=== PATIENT | male | born 1995 | race Asian ===

== ENCOUNTER 2020-03-02 11:34 | Outpatient (REF) | payer OTHER, SELFPAY | END 2020-03-02 11:35 | disposition home or self-care (01) | LOC: HO.LAB 11:34 | PROVIDERS: Visit Provider Internal Medicine | DX: Z20.828 Contact with and (suspected) exposure to other viral communicable diseases (principal) | CPT/HCPCS: C9803; U0003 ==

== ENCOUNTER 2021-08-16 09:34 | Outpatient (REF) | payer OTHER, SELFPAY ==
[2021-08-16 10:20] LABS: Hematocrit 50.3 % (42.0-52.0); Mean Corpuscular HGB Conc 33.8 g/dl (31.0-36.0); Mean Corpuscular Volume 85.7 fL (80.0-98.0); Mean Platelet Volume 8.7 fL (9.4-12.4); Platelet Count 327 X10*3/uL (160-400); Red Blood Count 5.87 X10*6/uL (4.60-5.80); Red Cell Distribution Width 11.4 % (11.0-16.0); White Blood Count 5.7 X10*3/uL (4.8-10.8)
[2021-08-16 10:45] LABS: Alanine Aminotransferase 46 U/L (0-40); Albumin Level 4.5 g/dL (3.5-5.0); Alkaline Phosphatase 80 U/L (39-117); Anion Gap 12 (12-20); Aspartate Amino Transferase 33 U/L (5-37); Bilirubin Total 0.9 mg/dL (0.0-1.0); Blood Urea Nitrogen 13 mg/dL (9-16); Calcium 9.7 mg/dL (8.4-10.2); Carbon Dioxide 27 mmol/L (22-29); Chloride 104 mmol/L (96-108); Cholesterol 264 mg/dL; Estimated Glomerular Filt Rate > 60; Glucose Fasting 98 mg/dL (60-99); HDL Cholesterol 36 mg/dL; LDL Cholesterol Calculated 197 mg/dl; Potassium 4.4 mmol/L (3.3-5.1); Sodium 139 mmol/L (135-145); Total Protein 7.8 g/dL (6.5-8.0); Triglycerides 158 mg/dL
[2021-08-16 11:06] LABS: Estimated Average Glucose 108 mg/dL; Hemoglobin A1c % 5.4 %
== END 2021-08-16 09:35 | disposition home or self-care (01) ==
LOC: HO.LAB 09:34
PROVIDERS: PCP Nurse Practitioner Family; Visit Provider Nurse Practitioner Family
DX: E78.00 Pure hypercholesterolemia, unspecified (principal); E78.2 Mixed hyperlipidemia; E11.9 Type 2 diabetes mellitus without complications; Z76.89 Persons encountering health services in other specified circumstances
CPT/HCPCS: 36415; 80053; 80061; 83036; 85027

== ENCOUNTER 2022-07-23 16:06 | Inpatient (IN) | payer OTHER, SELFPAY ==
--- NOTE | ~2022-07-23 | CT_ITS ---
EXAMINATION: CT ABDOMEN AND PELVIS WITHOUT CONTRAST CLINICAL INFORMATION: Severe lower abdominal pain and diarrhea COMPARISON: None available. TECHNIQUE: Multidetector volumetric imaging was performed from the superior aspect of the liver through the pubic symphysis. Sagittal and coronal reformatted images were obtained on the technologist's workstation. This CT examination was performed using dose optimization techniques as appropriate, variously including the following: *Automated exposure control *Adjustment of mA and/or kV according to patient size (this includes techniques or standardized protocols for targeted exams where dose is matched to indication/reason for exam; i.e. extremities or head) *Use of iterative reconstruction technique DLP: 504 mGy-cm FINDINGS: LUNG BASES: The visualized lung bases are unremarkable. LIVER, GALLBLADDER, AND BILIARY TREE: The liver is enlarged at 18.7 cm in greatest cephalocaudad dimension with decreased attenuation consistent with hepatic steatosis. No focal hepatic lesion or biliary ductal dilatation is present. The gallbladder is unremarkable with no evidence of radiopaque gallstones, gallbladder wall thickening, or obvious pericholecystic inflammatory changes. PANCREAS: Unremarkable. SPLEEN: Unremarkable. ADRENAL GLANDS: Unremarkable. KIDNEYS AND URETERS: The kidneys are normal in size, shape, and attenuation. There is mild left-sided hydronephrosis without an obstructing lesion seen. The ureter is not dilated. No right-sided hydronephrosis or hydroureter. No renal calculi. No perinephric stranding. BLADDER: Empty. No bladder calculi. GASTROINTESTINAL TRACT: Stool is only present in the right colon. The small and large bowel are unremarkable. The appendix is unremarkable. ABDOMINAL WALL: No significant hernia is appreciated. LYMPH NODES: Normal. VASCULAR: Unremarkable. PELVIC VISCERA: The prostate and seminal vesicles are unremarkable. There is a tiny cystic flat area seen just anterior to the left seminal vesicle which measures 1.3 x 0.9 cm questionable significance. This could be related to the ureterocele. OSSEOUS STRUCTURES: Unremarkable. CT/CT abdomen pelvis wo IV con IMPRESSION: 1. A cause for the patient's lower abdominal pain and diarrhea has not been found. 2. Incidental note made of an enlarged fatty liver. 3. There is mild left-sided hydronephrosis without an obstructing lesion seen. Small cystic area just in front of the left seminal vesicle of questionable significance. If further evaluation is needed, MRI would be the exam of choice. Fleischner guidelines were followed.
--- NOTE | ~2022-07-23 | CT_ITS ---
EXAMINATION: CT ANGIOGRAM ABDOMEN AND PELVIS CLINICAL INFORMATION: Bloody diarrhea, abdominal pain and concern for ischemia COMPARISON: Noncontrast CT scan pelvis earlier today TECHNIQUE: Multiple axial images were obtained through the abdomen and pelvis following the administration of 80 mL of Omnipaque 350 intravenous contrast. Additional 2-D coronal and sagittal reformatted images and axial 3-D maximum intensity projection MIP images are generated on the CT workstation. This CT examination was performed using dose optimization techniques as appropriate, variously including the following: *Automated exposure control *Adjustment of mA and/or kV according to patient size (this includes techniques or standardized protocols for targeted exams where dose is matched to indication/reason for exam; i.e. extremities or head) *Use of iterative reconstruction technique DLP: 450 mGy-cm VASCULAR FINDINGS: The abdominal aorta and visualized iliofemoral vessels are entirely normal. The celiac, SMA and PAOLA are all widely patent. No evidence of stenoses or emboli. There are single renal arteries present bilaterally which are widely patent. No extravasation of contrast is seen within bowel lumen. No AV malformations are seen. NONVASCULAR FINDINGS: No interval change when compared to the study from earlier today. LUNG BASES: The visualized lung bases are unremarkable. LIVER, GALLBLADDER, AND BILIARY TREE: Again seen is hepatomegaly with decreased attenuation consistent with hepatic steatosis. No focal hepatic lesion or biliary ductal dilatation is present. The gallbladder remains unremarkable with no evidence of radiopaque gallstones, gallbladder wall thickening, or obvious pericholecystic inflammatory changes. PANCREAS: Unremarkable. SPLEEN: Unremarkable. ADRENAL GLANDS: Unremarkable. KIDNEYS AND URETERS: The kidneys are normal in size, shape, and attenuation. Again seen is mild left-sided hydronephrosis without an obstructing lesion seen. The ureter is not dilated. No right-sided hydronephrosis or hydroureter. No renal calculi. There is a tiny subcentimeter left lower pole benign renal cyst present which needs no additional imaging or follow-up. No solid renal masses. No perinephric stranding. BLADDER: Bladder remains empty. No bladder calculi. GASTROINTESTINAL TRACT: Stool is only present in the right colon. The distal transverse colon as well as the entire left: There is completely decompressed which limits evaluation for colitis. No other hyperlipidemia or prominence of the vasa recta. However, given the patient's history I suspect that this may represent colitis. No pneumatosis. No portal venous air. No free intraperitoneal fluid. The small bowel is unremarkable. The appendix is unremarkable. ABDOMINAL WALL: No significant hernia is appreciated. LYMPH NODES: Normal. VASCULAR: Unremarkable. PELVIC VISCERA: The prostate and seminal vesicles are unremarkable. There is a tiny cystic flat area seen just anterior to the left seminal vesicle which measures 1.3 x 0.9 cm questionable significance. This could be related to the ureterocele. OSSEOUS STRUCTURES: Unremarkable. CT/CT angio abdomen pelvis IMPRESSION: 1. No evidence of vascular abnormality to account for the patient's GI bleeding. 2. The colon is completely decompressed which limits evaluation for colitis. Given the patient's history I suspect that this may represent colitis. 3. Incidental note made of mildly enlarged fatty liver. 4. 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 Fleischner guidelines were followed.
[2022-07-23 16:40] VITALS: BP 107/84; PULSE 85; RESP 22; TEMP 36.5; O2SAT 98; BMI 24.3
--- NOTE | 2022-07-23 16:41 | ED_ITS ---
HPI - Abdominal Pain General Chief Complaint: Abdominal Pain <RACHEL Freitas - Last Filed: 07/23/22 16:45> Stated Complaint: abd pain/ diarrhea <RACHEL Freitas - Last Filed: 07/23/22 16:45> Time Seen by Provider: 07/23/22 18:31 <RACHEL Freitas - Last Filed: 07/23/22 16:45> Source: patient <Angelina Fagan NP - Last Filed: 07/23/22 21:41> Mode of arrival: ambulatory <Angelina Fagan NP - Last Filed: 07/23/22 21:41> Limitations: no limitations <Angelina Fagan NP - Last Filed: 07/23/22 21:41> History of Present Illness HPI narrative: 27-year-old male presents with 1 day of 10/10 abdominal pain with bloody mucousy diarrhea. He does not report any travel outside the country, eating raw foods, or sick contacts. <Angelina Fagan NP - Last Filed: 07/23/22 21:41> MD elicited complaint: abdominal pain <Angelina Fagan NP - Last Filed: 07/23/22 21:41> Pertinent past history: other (Gilbert's disease) <Angelina Fagan NP - Last Filed: 07/23/22 21:41> Onset (ago): day(s) (1) <Angelina Fagan NP - Last Filed: 07/23/22 21:41> Pain Consistency: constant <Angelina Fagan NP - Last Filed: 07/23/22 21:41> Location: diffuse <Angelina Fagan NP - Last Filed: 07/23/22 21:41> Severity: severe <Angelina Fagan NP - Last Filed: 07/23/22 21:41> Pain scale (0-10): 10 <Angelina Fagan NP - Last Filed: 07/23/22 21:41> Quality: cramping and aching <Angelina Fagan NP - Last Filed: 07/23/22 21:41> Exacerbating factors: bowel movement and movement <Angelina Fagan NP - Last Filed: 07/23/22 21:41> Relieving factors: nothing <Angelina Fagan NP - Last Filed: 07/23/22 21:41> Associated symptoms: fever, chills and hematochezia <Angelina Fagan NP - Last Filed: 07/23/22 21:41> Related Data Home Medications: Home Medications Medication Instructions Recorded Confirmed acetaminophen 650 mg tablet 650 mg PO Q6H PRN Fever Or Pain 07/23/22 07/23/22 multivitamin 1 tab PO DAILY 07/23/22 07/23/22 <RACHEL Freitas - Last Filed: 07/23/22 16:45> Allergies/Adverse Reactions: Allergies Allergy/AdvReac Type Severity Reaction Status Date / Time apple Allergy Intermediate itchy Verified 08/15/21 09:39 throat peach Allergy Intermediate itchy Verified 08/15/21 09:39 throat <RACHEL Freitas - Last Filed: 07/23/22 16:45> Review of Systems Review of Systems Constitutional: No Fever, positive Chills Cardiovascular: No Chest Pain, No SOB Respiratory: No Cough, No Dyspnea Gastrointestinal: No Nausea, No Vomiting, positive bloody Diarrhea, positive severe abdominal Pain Genitourinary: No Dysuria, No Hematuria Musculoskeletal: No joint pain, No Myalgias, No Joint Swelling Skin: No Skin lacerations, No rash Neuro: No Weakness, No Numbness, No Paresthesias, No Dizziness, No Headache <Angelina Fagan NP - Last Filed: 07/23/22 21:41> Yes all other systems are reviewed and are negative <Angelina Fagan NP - Last Filed: 07/23/22 21:41> [facility] Past Medical History Attestation statement: The following information was validated with the patient. <Angelina Fagan NP - Last Filed: 07/23/22 21:41> Source: old records reviewed <Angelina Fagan NP - Last Filed: 07/23/22 21:41> Medical History: Medical History Congenital hydronephrosis <RACHEL Freitas Last Filed: 07/23/22 16:45> Surgical History: Surgical History History of biopsy <RACHEL Freitas - Last Filed: 07/23/22 16:45> Family History Family History: Family History Father Renal cell carcinoma Mixed hyperlipidemia <RACHEL Freitas - Last Filed: 07/23/22 16:45> Social History Social History: Social History Housing: House Alcohol intake: never Patient Tobacco Use Status: Never used Tobacco Smoked in Last 30 Days: No e-Cigarette/Vaping Use: Never Used Second Hand Smoke Exposure: No Use of substances other than those prescribed or required for medical reasons: No Advance Directives: No Advance Directives Information Provided: No service: No Current occupational status: employed 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 Cognitive needs: No Hearing needs: No Vision needs: Yes (glasses) <RACHEL Freitas - Last Filed: 07/23/22 16:45> Physical Exam ED Vital Signs: Vital Signs - 24 hr 07/23/22 16:40 07/23/22 19:45 07/23/22 20:21 Temperature 97.7 F 98.6 F Pulse Rate 85 65 Respiratory Rate 22 H 15 20 Blood Pressure 107/84 124/78 Pulse Oximetry 98 98 Oxygen Delivery Method Room Air Room Air BMI result Body Mass Index 24.3 <RACHEL Freitas - Last Filed: 07/23/22 16:45> Vital Signs - 24 hr 07/23/22 16:40 07/23/22 19:45 07/23/22 20:21 Temperature 97.7 F 98.6 F Pulse Rate 85 65 Respiratory Rate 22 H 15 20 Blood Pressure 107/84 124/78 Pulse Oximetry 98 98 Oxygen Delivery Method Room Air Room Air BMI result Body Mass Index 24.3 <Angelina Fagan NP - Last Filed: 07/23/22 21:41> Appearance: Alert. Oriented X3. Moderate distress. Shivering. Eyes: Pupils equal, round and reactive to light. ENT: Pharynx normal. Moist mucous membranes. Neck: Normal inspection. Neck supple. CVS: Tachycardic heart rate and rhythm. Apical pulse equal pulses to extremities. Respiratory: Tachypneic. Breath sounds normal. Abdomen: Soft and exquisitely tender. No distension or rigidity. Skin: Skin warm and dry. Normal skin color. Normal skin turgor. Extremities: No lower extremity edema. Gait balanced and coordinated. Neuro: No motor deficit. No sensory deficit. Cranial nerves 2-12 intact. <Angelina Fagan NP - Last Filed: 07/23/22 21:41> Course Course Course Narrative: RME - 27 yo male presents to the ER for evaluation of suprapubic abdominal pain and diarrhea that started at 8am and new rectal bleeding that started this afternoon. Reports the pain was so bad this morning he almost passed out. Grimacing, hyperventilating and in pain in triage. Plan: labs and CT scan abd/pelvis <RACHEL Freitas - Last Filed: 07/23/22 16:45> RME - 27 yo male presents to the ER for evaluation of suprapubic abdominal pain and diarrhea that started at 8am and new rectal bleeding that started this afternoon. Reports the pain was so bad this morning he almost passed out. Grimacing, hyperventilating and in pain in triage. Plan: labs and CT scan abd/pelvis 27-year-old male presents with 1 day of bloody gelatinous diarrhea and abdominal pain. Abdominal pain is 10/10, and feels like he is going to pass out. He has had over 20 bowel movements today, and approximately 5 while waiting in the emergency department waiting room. Patient has multiple pictures of his bowel movements, he does not have a history of abdominal surgery, or any significant past medical history. Has a history of Gilbert's disease, history of pancreatitis, and congenital hydronephrosis. Patient has not traveled outside of the country, has not eaten any raw foods, has not had any sick contacts. Patient's roommate has eaten the same food that he has, and is not ill. 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 Other than that he has not traveled or been exposed to anyone who has been outside of the country. CT scan of abdomen without contrast is negative for acute findings. Patient's physical exam is highly suspicious acute abdomen. He is exquisitely tender, has an elevated white count of 14.1, tachycardic on my assessment at 101, with a respiration rate of 25. Will treat for shigella versus colitis versus acute abdomen. Ceftriaxone, levofloxacin, fluids, morphine, and Zofran. Will add on lactic and cultures. 19:31 patient's pain is out of proportion to the CT scan that was completed. Patient continues to have gelatinous bloody stools, Hemoccult positive. I have significant concerns about ischemia, will order CTA angio abdomen pelvis. Patient has not eaten any questionable or raw foods, has not traveled outside of the country, his roommate has eaten the same foods he has eaten and is not ill. Lactic acid is elevated at 3.5, 2 L of fluids given. 21:00 CT abdomen pelvis with contrast suggestive of colitis. No indication of mesenteric ischemia. Discussion with hospitalist, plan of care is to admit for lower GI bleed, and colitis. I did discuss this in detail with the patient, who agrees with this plan. <SANTOSH Babb Last Filed: 07/23/22 21:41> Consultations Consultation #1: Hospitalist <Angelina Fagan NP - Last Filed: 07/23/22 21:41> Time: 21:00 <Angelina Fagan NP - Last Filed: 07/23/22 21:41> Medical Decision Making Differential Diagnosis Differential Diagnoses: The differential diagnosis associated with the presentation includes <SANTOSH Babb Last Filed: 07/23/22 21:41> Colitis, diverticulitis, ischemia, intussusception, intra-abdominal abscess, malignancy <SANTOSH Babb Last Filed: 07/23/22 21:41> Admission/Observation Consideration of admission/observation: Escalation of care including admission/observation considered <SANTOSH Babb Last Filed: 07/23/22 21:41> This patient will require admission <SANTOSH Babb Last Filed: 07/23/22 21:41> Consult Healthcare Provider Management of the patient was discussed with: Hospitalist <Angelina Fagan NP - Last Filed: 07/23/22 21:41> Lab Data MDM Lab Attestation statement: I reviewed the patient's lab results. <SANTOSH Babb Last Filed: 07/23/22 21:41> Result Diagrams: 07/23/22 17:56 07/23/22 17:56 <RACHEL Freitas - Last Filed: 07/23/22 16:45> Labs: Lab Results 07/23/22 07/23/22 07/23/22 Range/Units 17:56 17:56 17:56 WBC 14.1 H (4.8-10.8) X10*3/uL RBC 5.71 (4.60-5.80) X10*6/uL Hgb 16.9 (14.0-18.0) g/dl Hct 49.0 (42.0-52.0) % MCV 85.8 (80.0-98.0) fL MCH 29.6 (27.0-33.0) pg MCHC 34.5 (31.0-36.0) g/dl RDW 11.6 (11.0-16.0) % Plt Count 332 (160-400) X10*3/uL MPV 8.8 L (9.4-12.4) fL Immature Gran % (Auto) 0.5 H (0.0-0.4) % Neut % (Auto) 87.7 H (45-73) % Lymph % (Auto) 7.3 L (20-40) % [place] % (Auto) 4.3 (2-11) % Eos % (Auto) 0.0 (0-4) % Baso % (Auto) 0.2 (0-2) % Lymph # (Auto) 1.0 L (1.2-4.9) X10*3/uL [place] # (Auto) 0.6 (0.1-1.2) X10*3/uL Eos # (Auto) 0.0 (0.0-0.4) X10*3/uL Baso # (Auto) 0.0 (0.0-0.2) X10*3/uL Abs Immat Gran (auto) 0.07 H (0.00-0.03) X10*3/uL Absolute Neuts (auto) 12.4 H (2.0-8.3) x10*3/uL Absolute Nucleated RBC 0.000 (0.0-0.012) X10*3/uL Nucleated RBC % (auto) 0.0 (0.0-0.2) /100WBC ESR (0-15) MM/HR Sodium 139 (135-145) mmol/L Potassium 4.0 (3.3-5.1) mmol/L Chloride 104 (96-108) mmol/L Carbon Dioxide 23 (22-29) mmol/L Anion Gap 16 (12-20) BUN 10 (9-16) mg/dL Creatinine 1.02 (0.5-1.4) mg/dL Estim Creat Clear Calc 118.3 Estimated GFR > 60 Random Glucose 112 (60-115) mg/dL Lactic Acid (0.5-2.0) mmol/L Calcium 9.9 (8.4-10.2) mg/dL Magnesium 1.9 (1.6-2.6) mg/dL Total Bilirubin 1.1 H (0.0-1.0) mg/dL Direct Bilirubin 0.3 (0.0-0.5) mg/dL AST 38 H (5-37) U/L ALT 75 H (0-40) U/L Alkaline Phosphatase 81 (39-117) U/L Total Protein 7.7 (6.5-8.0) g/dL Albumin 4.7 (3.5-5.0) g/dL Lipase 19 (8-78) U/L Urine Color Yellow Urine Appearance Clear Urine pH 8.0 (5.0-9.0) Ur Specific [place] 1.020 (1.005-1.025) Urine Protein Negative (Neg-Trace) mg/dL Urine Glucose (UA) Negative (Negative) mg/dL Urine Ketones Trace (Negative) mg/dL Urine Blood Negative (Negative) Urine Nitrite Negative (Negative) Ur Leukocyte Esterase Negative (Negative) Stool Occult Blood (NEGATIVE) Influenza Type A (PCR) (Negative) Influenza Type B (PCR) (Negative) RSV RNA Qual (PCR) (Negative) SARS-CoV-2 RNA (RT-PCR) (Negative) 07/23/22 07/23/22 07/23/22 Range/Units 17:56 19:10 19:31 WBC (4.8-10.8) X10*3/uL RBC (4.60-5.80) X10*6/uL Hgb (14.0-18.0) g/dl Hct (42.0-52.0) % MCV (80.0-98.0) fL MCH (27.0-33.0) pg MCHC (31.0-36.0) g/dl RDW (11.0-16.0) % Plt Count (160-400) X10*3/uL MPV (9.4-12.4) fL Immature Gran % (Auto) (0.0-0.4) % Neut % (Auto) (45-73) % Lymph % (Auto) (20-40) % [place] % (Auto) (2-11) % Eos % (Auto) (0-4) % Baso % (Auto) (0-2) % Lymph # (Auto) (1.2-4.9) X10*3/uL [place] # (Auto) (0.1-1.2) X10*3/uL Eos # (Auto) (0.0-0.4) X10*3/uL Baso # (Auto) (0.0-0.2) X10*3/uL Abs Immat Gran (auto) (0.00-0.03) X10*3/uL Absolute Neuts (auto) (2.0-8.3) x10*3/uL Absolute Nucleated RBC (0.0-0.012) X10*3/uL Nucleated RBC % (auto) (0.0-0.2) /100WBC ESR 4 (0-15) MM/HR Sodium (135-145) mmol/L Potassium (3.3-5.1) mmol/L Chloride (96-108) mmol/L Carbon Dioxide (22-29) mmol/L Anion Gap (12-20) BUN (9-16) mg/dL Creatinine (0.5-1.4) mg/dL Estim Creat Clear Calc Estimated GFR Random Glucose (60-115) mg/dL Lactic Acid 3.5 H* (0.5-2.0) mmol/L Calcium (8.4-10.2) mg/dL Magnesium (1.6-2.6) mg/dL Total Bilirubin (0.0-1.0) mg/dL Direct Bilirubin (0.0-0.5) mg/dL AST (5-37) U/L ALT (0-40) U/L Alkaline Phosphatase (39-117) U/L Total Protein (6.5-8.0) g/dL Albumin (3.5-5.0) g/dL Lipase (8-78) U/L Urine Color Urine Appearance Urine pH (5.0-9.0) Ur Specific [place] (1.005-1.025) Urine Protein (Neg-Trace) mg/dL Urine Glucose (UA) (Negative) mg/dL Urine Ketones (Negative) mg/dL Urine Blood (Negative) Urine Nitrite (Negative) Ur Leukocyte Esterase (Negative) Stool Occult Blood POSITIVE (NEGATIVE) Influenza Type A (PCR) (Negative) Influenza Type B (PCR) (Negative) RSV RNA Qual (PCR) (Negative) SARS-CoV-2 RNA (RT-PCR) (Negative) 07/23/22 Range/Units 19:45 WBC (4.8-10.8) X10*3/uL RBC (4.60-5.80) X10*6/uL Hgb (14.0-18.0) g/dl Hct (42.0-52.0) % MCV (80.0-98.0) fL MCH (27.0-33.0) pg MCHC (31.0-36.0) g/dl RDW (11.0-16.0) % Plt Count (160-400) X10*3/uL MPV (9.4-12.4) fL Immature Gran % (Auto) (0.0-0.4) % Neut % (Auto) (45-73) % Lymph % (Auto) (20-40) % [place] % (Auto) (2-11) % Eos % (Auto) (0-4) % Baso % (Auto) (0-2) % Lymph # (Auto) (1.2-4.9) X10*3/uL [place] # (Auto) (0.1-1.2) X10*3/uL Eos # (Auto) (0.0-0.4) X10*3/uL Baso # (Auto) (0.0-0.2) X10*3/uL Abs Immat Gran (auto) (0.00-0.03) X10*3/uL Absolute Neuts (auto) (2.0-8.3) x10*3/uL Absolute Nucleated RBC (0.0-0.012) X10*3/uL Nucleated RBC % (auto) (0.0-0.2) /100WBC ESR (0-15) MM/HR Sodium (135-145) mmol/L Potassium (3.3-5.1) mmol/L Chloride (96-108) mmol/L Carbon Dioxide (22-29) mmol/L Anion Gap (12-20) BUN (9-16) mg/dL Creatinine (0.5-1.4) mg/dL Estim Creat Clear Calc Estimated GFR Random Glucose (60-115) mg/dL Lactic Acid (0.5-2.0) mmol/L Calcium (8.4-10.2) mg/dL Magnesium (1.6-2.6) mg/dL Total Bilirubin (0.0-1.0) mg/dL Direct Bilirubin (0.0-0.5) mg/dL AST (5-37) U/L ALT (0-40) U/L Alkaline Phosphatase (39-117) U/L Total Protein (6.5-8.0) g/dL Albumin (3.5-5.0) g/dL Lipase (8-78) U/L Urine Color Urine Appearance Urine pH (5.0-9.0) Ur Specific [place] (1.005-1.025) Urine Protein (Neg-Trace) mg/dL Urine Glucose (UA) (Negative) mg/dL Urine Ketones (Negative) mg/dL Urine Blood (Negative) Urine Nitrite (Negative) Ur Leukocyte Esterase (Negative) Stool Occult Blood (NEGATIVE) Influenza Type A (PCR) NEGATIVE (Negative) Influenza Type B (PCR) NEGATIVE (Negative) RSV RNA Qual (PCR) NEGATIVE (Negative) SARS-CoV-2 RNA (RT-PCR) NEGATIVE (Negative) <RACHEL Freitas - Last Filed: 07/23/22 16:45> Lab Results 07/23/22 07/23/22 07/23/22 Range/Units 17:56 17:56 17:56 WBC 14.1 H (4.8-10.8) X10*3/uL RBC 5.71 (4.60-5.80) X10*6/uL Hgb 16.9 (14.0-18.0) g/dl Hct 49.0 (42.0-52.0) % MCV 85.8 (80.0-98.0) fL MCH 29.6 (27.0-33.0) pg MCHC 34.5 (31.0-36.0) g/dl RDW 11.6 (11.0-16.0) % Plt Count 332 (160-400) X10*3/uL MPV 8.8 L (9.4-12.4) fL Immature Gran % (Auto) 0.5 H (0.0-0.4) % Neut % (Auto) 87.7 H (45-73) % Lymph % (Auto) 7.3 L (20-40) % [place] % (Auto) 4.3 (2-11) % Eos % (Auto) 0.0 (0-4) % Baso % (Auto) 0.2 (0-2) % Lymph # (Auto) 1.0 L (1.2-4.9) X10*3/uL [place] # (Auto) 0.6 (0.1-1.2) X10*3/uL Eos # (Auto) 0.0 (0.0-0.4) X10*3/uL Baso # (Auto) 0.0 (0.0-0.2) X10*3/uL Abs Immat Gran (auto) 0.07 H (0.00-0.03) X10*3/uL Absolute Neuts (auto) 12.4 H (2.0-8.3) x10*3/uL Absolute Nucleated RBC 0.000 (0.0-0.012) X10*3/uL Nucleated RBC % (auto) 0.0 (0.0-0.2) /100WBC ESR (0-15) MM/HR Sodium 139 (135-145) mmol/L Potassium 4.0 (3.3-5.1) mmol/L Chloride 104 (96-108) mmol/L Carbon Dioxide 23 (22-29) mmol/L Anion Gap 16 (12-20) BUN 10 (9-16) mg/dL Creatinine 1.02 (0.5-1.4) mg/dL Estim Creat Clear Calc 118.3 Estimated GFR > 60 Random Glucose 112 (60-115) mg/dL Lactic Acid (0.5-2.0) mmol/L Calcium 9.9 (8.4-10.2) mg/dL Magnesium 1.9 (1.6-2.6) mg/dL Total Bilirubin 1.1 H (0.0-1.0) mg/dL Direct Bilirubin 0.3 (0.0-0.5) mg/dL AST 38 H (5-37) U/L ALT 75 H (0-40) U/L Alkaline Phosphatase 81 (39-117) U/L Total Protein 7.7 (6.5-8.0) g/dL Albumin 4.7 (3.5-5.0) g/dL Lipase 19 (8-78) U/L Urine Color Yellow Urine Appearance Clear Urine pH 8.0 (5.0-9.0) Ur Specific [place] 1.020 (1.005-1.025) Urine Protein Negative (Neg-Trace) mg/dL Urine Glucose (UA) Negative (Negative) mg/dL Urine Ketones Trace (Negative) mg/dL Urine Blood Negative (Negative) Urine Nitrite Negative (Negative) Ur Leukocyte Esterase Negative (Negative) Stool Occult Blood (NEGATIVE) Influenza Type A (PCR) (Negative) Influenza Type B (PCR) (Negative) RSV RNA Qual (PCR) (Negative) SARS-CoV-2 RNA (RT-PCR) (Negative) 07/23/22 07/23/22 07/23/22 Range/Units 17:56 19:10 19:31 WBC (4.8-10.8) X10*3/uL RBC (4.60-5.80) X10*6/uL Hgb (14.0-18.0) g/dl Hct (42.0-52.0) % MCV (80.0-98.0) fL MCH (27.0-33.0) pg MCHC (31.0-36.0) g/dl RDW (11.0-16.0) % Plt Count (160-400) X10*3/uL MPV (9.4-12.4) fL Immature Gran % (Auto) (0.0-0.4) % Neut % (Auto) (45-73) % Lymph % (Auto) (20-40) % [place] % (Auto) (2-11) % Eos % (Auto) (0-4) % Baso % (Auto) (0-2) % Lymph # (Auto) (1.2-4.9) X10*3/uL [place] # (Auto) (0.1-1.2) X10*3/uL Eos # (Auto) (0.0-0.4) X10*3/uL Baso # (Auto) (0.0-0.2) X10*3/uL Abs Immat Gran (auto) (0.00-0.03) X10*3/uL Absolute Neuts (auto) (2.0-8.3) x10*3/uL Absolute Nucleated RBC (0.0-0.012) X10*3/uL Nucleated RBC % (auto) (0.0-0.2) /100WBC ESR 4 (0-15) MM/HR Sodium (135-145) mmol/L Potassium (3.3-5.1) mmol/L Chloride (96-108) mmol/L Carbon Dioxide (22-29) mmol/L Anion Gap (12-20) BUN (9-16) mg/dL Creatinine (0.5-1.4) mg/dL Estim Creat Clear Calc Estimated GFR Random Glucose (60-115) mg/dL Lactic Acid 3.5 H* (0.5-2.0) mmol/L Calcium (8.4-10.2) mg/dL Magnesium (1.6-2.6) mg/dL Total Bilirubin (0.0-1.0) mg/dL Direct Bilirubin (0.0-0.5) mg/dL AST (5-37) U/L ALT (0-40) U/L Alkaline Phosphatase (39-117) U/L Total Protein (6.5-8.0) g/dL Albumin (3.5-5.0) g/dL Lipase (8-78) U/L Urine Color Urine Appearance Urine pH (5.0-9.0) Ur Specific [place] (1.005-1.025) Urine Protein (Neg-Trace) mg/dL Urine Glucose (UA) (Negative) mg/dL Urine Ketones (Negative) mg/dL Urine Blood (Negative) Urine Nitrite (Negative) Ur Leukocyte Esterase (Negative) Stool Occult Blood POSITIVE (NEGATIVE) Influenza Type A (PCR) (Negative) Influenza Type B (PCR) (Negative) RSV RNA Qual (PCR) (Negative) SARS-CoV-2 RNA (RT-PCR) (Negative) 07/23/22 Range/Units 19:45 WBC (4.8-10.8) X10*3/uL RBC (4.60-5.80) X10*6/uL Hgb (14.0-18.0) g/dl Hct (42.0-52.0) % MCV (80.0-98.0) fL MCH (27.0-33.0) pg MCHC (31.0-36.0) g/dl RDW (11.0-16.0) % Plt Count (160-400) X10*3/uL MPV (9.4-12.4) fL Immature Gran % (Auto) (0.0-0.4) % Neut % (Auto) (45-73) % Lymph % (Auto) (20-40) % [place] % (Auto) (2-11) % Eos % (Auto) (0-4) % Baso % (Auto) (0-2) % Lymph # (Auto) (1.2-4.9) X10*3/uL [place] # (Auto) (0.1-1.2) X10*3/uL Eos # (Auto) (0.0-0.4) X10*3/uL Baso # (Auto) (0.0-0.2) X10*3/uL Abs Immat Gran (auto) (0.00-0.03) X10*3/uL Absolute Neuts (auto) (2.0-8.3) x10*3/uL Absolute Nucleated RBC (0.0-0.012) X10*3/uL Nucleated RBC % (auto) (0.0-0.2) /100WBC ESR (0-15) MM/HR Sodium (135-145) mmol/L Potassium (3.3-5.1) mmol/L Chloride (96-108) mmol/L Carbon Dioxide (22-29) mmol/L Anion Gap (12-20) BUN (9-16) mg/dL Creatinine (0.5-1.4) mg/dL Estim Creat Clear Calc Estimated GFR Random Glucose (60-115) mg/dL Lactic Acid (0.5-2.0) mmol/L Calcium (8.4-10.2) mg/dL Magnesium (1.6-2.6) mg/dL Total Bilirubin (0.0-1.0) mg/dL Direct Bilirubin (0.0-0.5) mg/dL AST (5-37) U/L ALT (0-40) U/L Alkaline Phosphatase (39-117) U/L Total Protein (6.5-8.0) g/dL Albumin (3.5-5.0) g/dL Lipase (8-78) U/L Urine Color Urine Appearance Urine pH (5.0-9.0) Ur Specific [place] (1.005-1.025) Urine Protein (Neg-Trace) mg/dL Urine Glucose (UA) (Negative) mg/dL Urine Ketones (Negative) mg/dL Urine Blood (Negative) Urine Nitrite (Negative) Ur Leukocyte Esterase (Negative) Stool Occult Blood (NEGATIVE) Influenza Type A (PCR) NEGATIVE (Negative) Influenza Type B (PCR) NEGATIVE (Negative) RSV RNA Qual (PCR) NEGATIVE (Negative) SARS-CoV-2 RNA (RT-PCR) NEGATIVE (Negative) <Angelina Fagan NP - Last Filed: 07/23/22 21:41> Independent Interpretation I performed an independent interpretation of an: CT Scan <Angelina Fagan NP - Last Filed: 07/23/22 21:41> Radiology Impression Discussion of test interpretation with radiology: I have reviewed the radiologist's reading. <Angelina Fagan NP - Last Filed: 07/23/22 21:41> Radiologist Impression: FINDINGS: LUNG BASES: The visualized lung bases are unremarkable.? LIVER, GALLBLADDER, AND BILIARY TREE: The liver is enlarged at 18.7 cm in greatest cephalocaudad dimension with decreased attenuation consistent with hepatic steatosis. No focal hepatic lesion or biliary ductal dilatation is present. The gallbladder is unremarkable with no evidence of radiopaque gallstones, gallbladder wall thickening, or obvious pericholecystic inflammatory changes.? PANCREAS: Unremarkable.? SPLEEN: Unremarkable.? ADRENAL GLANDS: Unremarkable.? KIDNEYS AND URETERS: The kidneys are normal in size, shape, and attenuation. There is mild left-sided hydronephrosis without an obstructing lesion seen. The ureter is not dilated. No right-sided hydronephrosis or hydroureter.? No renal calculi. No perinephric stranding. ? BLADDER: Empty. No bladder calculi.? GASTROINTESTINAL TRACT:? Stool is only present in the right colon. The small and large bowel are unremarkable. The appendix is unremarkable.? ABDOMINAL WALL: No significant hernia is appreciated.? LYMPH NODES: Normal. VASCULAR: Unremarkable. PELVIC VISCERA: The prostate and seminal vesicles are unremarkable. There is a tiny cystic flat area seen just anterior to the left seminal vesicle which measures 1.3 x 0.9 cm questionable significance. This could be related to the ureterocele. OSSEOUS STRUCTURES: Unremarkable.? CT/CT abdomen pelvis wo IV con IMPRESSION: 1.? A cause for the patient's lower abdominal pain and diarrhea has not been found. 2.? Incidental note made of an enlarged fatty liver. 3.? There is mild left-sided hydronephrosis without an obstructing lesion seen. Small cystic area just in front of the left seminal vesicle of questionable significance. If further evaluation is needed, MRI would be the exam of choice. ? Fleischner guidelines were followed. VASCULAR FINDINGS: The abdominal aorta and visualized iliofemoral vessels are entirely normal. The celiac, SMA and PAOLA are all widely patent. No evidence of stenoses or emboli. There are single renal arteries present bilaterally which are widely patent. No extravasation of contrast is seen within bowel lumen. No AV malformations are seen. NONVASCULAR FINDINGS: No interval change when compared to the study from earlier today. LUNG BASES: The visualized lung bases are unremarkable.? LIVER, GALLBLADDER, AND BILIARY TREE: Again seen is hepatomegaly with decreased attenuation consistent with hepatic steatosis. No focal hepatic lesion or biliary ductal dilatation is present. The gallbladder remains unremarkable with no evidence of radiopaque gallstones, gallbladder wall thickening, or obvious pericholecystic inflammatory changes.? PANCREAS: Unremarkable.? SPLEEN: Unremarkable.? ADRENAL GLANDS: Unremarkable.? KIDNEYS AND URETERS: The kidneys are normal in size, shape, and attenuation. Again seen is mild left-sided hydronephrosis without an obstructing lesion seen. The ureter is not dilated. No right-sided hydronephrosis or hydroureter.? No renal calculi. There is a tiny subcentimeter left lower pole benign renal cyst present which needs no additional imaging or follow-up. No solid renal masses. No perinephric stranding. ? BLADDER: Bladder remains empty. No bladder calculi.? GASTROINTESTINAL TRACT:? Stool is only present in the right colon. The distal transverse colon as well as the entire left: There is completely decompressed which limits evaluation for colitis. No other hyperlipidemia or prominence of the vasa recta. However, given the patient's history I suspect that this may represent colitis. No pneumatosis. No portal venous air. No free intraperitoneal fluid. The small bowel is unremarkable. The appendix is unremarkable.? ABDOMINAL WALL: No significant hernia is appreciated.? LYMPH NODES: Normal. VASCULAR: Unremarkable. PELVIC VISCERA: The prostate and seminal vesicles are unremarkable. There is a tiny cystic flat area seen just anterior to the left seminal vesicle which measures 1.3 x 0.9 cm questionable significance. This could be related to the ureterocele. OSSEOUS STRUCTURES: Unremarkable.? CT/CT angio abdomen pelvis IMPRESSION: 1.? No evidence of vascular abnormality to account for the patient's GI bleeding. 2.? The colon is completely decompressed which limits evaluation for colitis. Given the patient's history I suspect that this may represent colitis. 3.? Incidental note made of mildly enlarged fatty liver. 4.? 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 ? Fleischner guidelines were followed. ? <Angelina Fagan NP - Last Filed: 07/23/22 21:41> External Record Review This patient does not have any prior visits at this facility <Angelina Fagan NP - Last Filed: 07/23/22 21:41> Prescription Management I considered prescription management with: Pain Medication, Antibiotic and Other (Antiemetic) <Angelina Fagan NP - Last Filed: 07/23/22 21:41> Medications Administered Discontinued Medications Generic Name Dose Route Start Last Admin Trade Name Freq PRN Reason Stop Dose Admin Levofloxacin 750 mg in 150 mls @ 100 mls/hr 07/23/22 19:10 07/23/22 20:36 Levaquin IV 07/23/22 20:39 100 mls/hr ONCE ONE Administration Ceftriaxone Sodium 1 gm/ 50 mls @ 100 mls/hr 07/23/22 19:10 07/23/22 20:38 Sodium Chloride IV 07/23/22 19:39 Infused ONCE ONE Infusion Sodium Chloride 1,000 mls @ 999 mls/hr 07/23/22 19:15 07/23/22 21:16 Ns IVCONT 07/23/22 20:15 Infused .Q1H1M ZAIDA Infusion Iohexol 100 ml 07/23/22 20:01 07/23/22 20:01 Iohexol 350 Mg/Ml 100 Ml Infus..Btl IV 07/23/22 20:02 80 ml ONCE ONE Administration Morphine Sulfate 4 mg 07/23/22 18:59 07/23/22 19:45 Morphine Sulfate 4 Mg/Ml Cartridge IVPUSH 07/23/22 19:00 4 mg ONCE ONE Administration Protocol Ondansetron HCl 4 mg 07/23/22 19:10 07/23/22 19:45 Ondansetron Hcl 4 Mg/2 Ml Vial IVPUSH 07/23/22 19:11 4 mg ONCE ONE Administration <RACHEL Freitas - Last Filed: 07/23/22 16:45> Medications Administered Discontinued Medications Generic Name Dose Route Start Last Admin Trade Name Freq PRN Reason Stop Dose Admin Levofloxacin 750 mg in 150 mls @ 100 mls/hr 07/23/22 19:10 07/23/22 20:36 Levaquin IV 07/23/22 20:39 100 mls/hr ONCE ONE Administration Ceftriaxone Sodium 1 gm/ 50 mls @ 100 mls/hr 07/23/22 19:10 07/23/22 20:38 Sodium Chloride IV 07/23/22 19:39 Infused ONCE ONE Infusion Sodium Chloride 1,000 mls @ 999 mls/hr 07/23/22 19:15 07/23/22 21:16 Ns IVCONT 07/23/22 20:15 Infused .Q1H1M ZAIDA Infusion Iohexol 100 ml 07/23/22 20:01 07/23/22 20:01 Iohexol 350 Mg/Ml 100 Ml Infus..Btl IV 07/23/22 20:02 80 ml ONCE ONE Administration Morphine Sulfate 4 mg 07/23/22 18:59 07/23/22 19:45 Morphine Sulfate 4 Mg/Ml Cartridge IVPUSH 07/23/22 19:00 4 mg ONCE ONE Administration Protocol Ondansetron HCl 4 mg 07/23/22 19:10 07/23/22 19:45 Ondansetron Hcl 4 Mg/2 Ml Vial IVPUSH 07/23/22 19:11 4 mg ONCE ONE Administration <Angelina Fagan NP - Last Filed: 07/23/22 21:41> Critical Care Time Critical Care Time Critical Care Time: Yes <Angelina Fagan NP - Last Filed: 07/23/22 21:41> Total Critical Care Time: 45 <Angelina Fagan NP - Last Filed: 07/23/22 21:41> Attestation: I have personally provided critical care time exclusive of time spent on separately billable procedures. Time includes review of laboratory data, radiology results, discussion with consultants, and monitoring for potential decompensation. Interventions were performed as documented. <Angelina Fagan NP - Last Filed: 07/23/22 21:41> Discharge Plan Discharge Prescriptions: No Action multivitamin Tablet 1 tab PO DAILY acetaminophen 650 mg Tablet 650 mg PO Q6H PRN (Reason: Fever Or Pain) <RACHEL Freitas - Last Filed: 07/23/22 16:45>
[2022-07-23 18:06] LABS: MANUAL DIFF FLAG NO
[2022-07-23 18:07] LABS: Basophils Percent Auto 0.2 % (0-2); Hemoglobin 16.9 g/dl (14.0-18.0); Imm Gran Abs Auto 0.07 X10*3/uL (0.00-0.03); Imm Gran Pct Auto 0.5 % (0.0-0.4); Lymphocytes Percent Auto 7.3 % (20-40); Mean Corpuscular HGB Conc 34.5 g/dl (31.0-36.0); Mean Corpuscular Hemoglobin 29.6 pg (27.0-33.0); Mean Corpuscular Volume 85.8 fL (80.0-98.0); Mean Platelet Volume 8.8 fL (9.4-12.4); Monocytes Absolute Auto 0.6 X10*3/uL (0.1-1.2); Monocytes Percent Auto 4.3 % (2-11); Neutrophils Absolute Auto 12.4 x10*3/uL (2.0-8.3); Neutrophils Percent Auto 87.7 % (45-73); Platelet Count 332 X10*3/uL (160-400); Red Blood Count 5.71 X10*6/uL (4.60-5.80); Red Cell Distribution Width 11.6 % (11.0-16.0); White Blood Count 14.1 X10*3/uL (4.8-10.8)
[2022-07-23 18:08] LABS: Appearance Urine Clear; Color Urine Yellow; Glucose Urine UA Negative (Negative); Leukocyte Esterase Urine Negative (Negative); Nitrite Urine Negative (Negative); Urine Blood Negative (Negative); Urine Ketones Trace mg/dL (Negative); Urine Protein Negative (Neg-Trace)
[2022-07-23 18:30] LABS: Alanine Aminotransferase 75 U/L (0-40); Albumin Level 4.7 g/dL (3.5-5.0); Alkaline Phosphatase 81 U/L (39-117); Anion Gap 16 (12-20); Aspartate Amino Transferase 38 U/L (5-37); Bilirubin Direct 0.3 mg/dL (0.0-0.5); Bilirubin Total 1.1 mg/dL (0.0-1.0); Blood Urea Nitrogen 10 mg/dL (9-16); Calcium 9.9 mg/dL (8.4-10.2); Carbon Dioxide 23 mmol/L (22-29); Chloride 104 mmol/L (96-108); Creatinine Clr Calc Pharmacy 118.3; Estimated Glomerular Filt Rate > 60; Glucose Random 112 mg/dL (60-115); Lipase 19 U/L (8-78); Magnesium 1.9 mg/dL (1.6-2.6); Sodium 139 mmol/L (135-145); Total Protein 7.7 g/dL (6.5-8.0)
--- NOTE | 2022-07-23 19:11 | ECG_ITS ---
Test Reason : PAIN Blood Pressure : / mmHG Vent. Rate : 064 BPM Atrial Rate : 064 BPM P-R Int : 166 ms QRS Dur : 110 ms QT Int : 400 ms P-R-T Axes : 052 -24 -15 degrees QTc Int : 412 ms Normal sinus rhythm Inferior T wave inversions Abnormal ECG No previous ECGs available Referred By: Angelina Fagan Electronically Signed By:Jerzy José
[2022-07-23 19:17] LABS: OBS Int Ctl Valid YES; OBS1 POSITIVE (NEGATIVE)
[2022-07-23 19:45] VITALS: RESP 15
[2022-07-23] MEDS: ondansetron HCL 4 MG/2 ML VIAL IVPUSH ×2 (19:45→23:24)
[2022-07-23] MEDS: Morphine Sulfate 4 MG/ML CARTRIDGE IVPUSH ×2 (19:45→23:10)
[2022-07-23] MEDS: iohexoL 350 MG/ML 100 ML INFUS..BTL IV (20:01)
[2022-07-23 20:03] LABS: Lactic Acid 3.5 mmol/L (0.5-2.0)
[2022-07-23] MEDS: 0.9 % Sodium Chloride 1,000 ML 999 ML IVCONT ×2 (20:08→21:35)
[2022-07-23] MEDS: cefTRIAXone sodium 1 GM in 0.9 % Sodium Chloride 50 ML IV (20:08)
--- NOTE | 2022-07-23 20:12 | PHA.MEDREC ---
Patient stated only taking MVI & Acetaminophen prn Pharmacy Consult ? Medication Reconciliation Pharmacy has completed the medication reconciliation.
[2022-07-23 20:21] VITALS: BP 124/78; PULSE 65; RESP 20; TEMP 37; O2SAT 98
[2022-07-23 20:30] LABS: Influenza A PCR NEGATIVE (Negative); Influenza B PCR NEGATIVE (Negative); Resp Syncy Virus RNA Qual PCR NEGATIVE (Negative); SARS COV2 PCR INHOUSE NEGATIVE (Negative)
[2022-07-23] MEDS: levoFLOXacin/D5W 750 MG/150 ML PIGGYBACK 100 MG IV (20:36)
[2022-07-23 21:05] LABS: Erythrocyte Sedimentation Rate 4 MM/HR (0-15)
[2022-07-23 21:41] LABS: Reflex Lactate? Lactic Acid Added
[2022-07-23 22:04] LABS: C Reactive Protein 0.97 mg/dL (< or = 0.50)
--- NOTE | 2022-07-23 22:24 | P.HPHOSP_ITS ---
History of Present Illness Date of Service: 07/23/22 Chief Complaint: Abdominal pain, bloody diarrhea 27-year-old male with past medical history of Gilbert's disease, history of pancreatitis, mixed hyperlipidemia, congenital hydronephrosis presents to the hospital with complaints of sudden onset abdominal pain, as well as bloody diarrhea. Patient states his symptoms started early in the day after eating, he started developing significant lower abdominal pain, 10/10, shooting, nonradiating, constant, not relieved with any [id number] pain meds including Extra strength Tylenol associated with multiple episodes of bloody diarrhea. Patient reports couple of episodes of bloody diarrhea in the past th at have resolved spontaneously in was not associated with any abdominal pain and he attributed it to stressful events in his life. He denies any fever, has chills, no nausea or vomiting, no chest pain, no shortness of breath, no urinary symptoms and no lower extremity edema On arrival to the ED patient hemodynamically stable, labs are significant for WBC count of 14.1, lactic acid of 3.5 which resolved after IV fluids, CRP of 0.97, ESR of 4 otherwise unremarkable, abdomen CT angiogram showed possible colitis with no other significant abnormality noted Review of Systems Review of Systems: Yes all other systems are reviewed and are negative [facility] Medical History Acne vulgaris Congenital hydronephrosis Gilbert disease History of pancreatitis Latent tuberculosis Mixed hyperlipidemia Family History Father Renal cell carcinoma Mixed hyperlipidemia Surgical History History of biopsy Social History Household Members: Other Housing: House Alcohol intake: never Patient Tobacco Use Status: Never used Tobacco Smoked in Last 30 Days: No e-Cigarette/Vaping Use: Never Used Second Hand Smoke Exposure: No Use of substances other than those prescribed or required for medical reasons: No Currently Displaying Signs/Symptoms of Drug Intoxication Withdrawal: No Have you been hit, kicked, punched, or otherwise hurt by someone within the past year? 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 Cognitive needs: No Hearing needs: No Vision needs: Yes (glasses) Meds Allergies Allergy/AdvReac Type Severity Reaction Status Date / Time apple Allergy Intermediate itchy Verified 08/15/21 09:39 throat peach Allergy Intermediate itchy Verified 08/15/21 09:39 throat Home Medications Medication Instructions Recorded Confirmed Last Taken Type acetaminophen 650 mg tablet 650 mg PO Q6H PRN Fever Or Pain 07/23/22 07/23/22 Unknown History multivitamin 1 tab PO DAILY 07/23/22 07/23/22 Unknown History Physical Exam Vital Signs and Narrative: Vital Signs: Last Vital Signs Temp 98.6 F 07/23/22 20:21 Pulse 65 07/23/22 20:21 Resp 20 07/23/22 20:21 BP 124/78 07/23/22 20:21 Pulse Ox 98 07/23/22 20:21 O2 Del Method Room Air 07/23/22 20:21 BMI result Body Mass Index 24.3 Const: General: cooperative and no acute distress Orientation/consciousness: patient oriented x3 Eyes: General: appearance normal, both eyes and all related structures Resp: Effort & Inspection: normal respiratory effort Auscultation: clear to auscultation bilaterally Cardio: Rate: regular rate Rhythm: regular rhythm GI: Other: abdomen is significantly tender on minimal palpation, has guarding, and rebound Palpation (GI): Soft to palpation Auscultation: normal bowel sounds Skin: General skin exam: no rashes or lesions noted Neuro: General: patient oriented x3 Cognition (Neuro): normal cognition Extrem: General: Yes normal to inspection and Yes no pedal edema Results Labs 07/23/22 17:56 07/23/22 17:56 Labs: Laboratory Results - last 24 hr 07/23/22 07/23/22 07/23/22 17:56 17:56 17:56 MCV 85.8 MCH 29.6 MCHC 34.5 RDW 11.6 Plt Count 332 MPV 8.8 L Immature Gran % (Auto) 0.5 H Neut % (Auto) 87.7 H Lymph % (Auto) 7.3 L Mcdonald % (Auto) 4.3 Eos % (Auto) 0.0 Baso % (Auto) 0.2 Lymph # (Auto) 1.0 L Mcdonald # (Auto) 0.6 Eos # (Auto) 0.0 Baso # (Auto) 0.0 Abs Immat Gran (auto) 0.07 H Absolute Neuts (auto) 12.4 H Absolute Nucleated RBC 0.000 Nucleated RBC % (auto) 0.0 ESR Anion Gap 16 Estim Creat Clear Calc 118.3 Estimated GFR > 60 Random Glucose 112 Lactic Acid Calcium 9.9 Magnesium 1.9 Total Bilirubin 1.1 H Direct Bilirubin 0.3 AST 38 H ALT 75 H Alkaline Phosphatase 81 C-Reactive Protein Total Protein 7.7 Albumin 4.7 Lipase 19 Urine Color Yellow Urine Appearance Clear Urine pH 8.0 Ur Specific [place] 1.020 Urine Protein Negative Urine Glucose (UA) Negative Urine Ketones Trace Urine Blood Negative Urine Nitrite Negative Ur Leukocyte Esterase Negative Stool Occult Blood Influenza Type A (PCR) Influenza Type B (PCR) RSV RNA Qual (PCR) SARS-CoV-2 RNA (RT-PCR) 07/23/22 07/23/22 07/23/22 17:56 19:10 19:31 MCV MCH MCHC RDW Plt Count MPV Immature Gran % (Auto) Neut % (Auto) Lymph % (Auto) Mcdonald % (Auto) Eos % (Auto) Baso % (Auto) Lymph # (Auto) Mcdonald # (Auto) Eos # (Auto) Baso # (Auto) Abs Immat Gran (auto) Absolute Neuts (auto) Absolute Nucleated RBC Nucleated RBC % (auto) ESR 4 Anion Gap Estim Creat Clear Calc Estimated GFR Random Glucose Lactic Acid 3.5 H* Calcium Magnesium Total Bilirubin Direct Bilirubin AST ALT Alkaline Phosphatase C-Reactive Protein Total Protein Albumin Lipase Urine Color Urine Appearance Urine pH Ur Specific [place] Urine Protein Urine Glucose (UA) Urine Ketones Urine Blood Urine Nitrite Ur Leukocyte Esterase Stool Occult Blood POSITIVE Influenza Type A (PCR) Influenza Type B (PCR) RSV RNA Qual (PCR) SARS-CoV-2 RNA (RT-PCR) 07/23/22 07/23/22 19:45 21:42 MCV MCH MCHC RDW Plt Count MPV Immature Gran % (Auto) Neut % (Auto) Lymph % (Auto) Mcdonald % (Auto) Eos % (Auto) Baso % (Auto) Lymph # (Auto) Mcdonald # (Auto) Eos # (Auto) Baso # (Auto) Abs Immat Gran (auto) Absolute Neuts (auto) Absolute Nucleated RBC Nucleated RBC % (auto) ESR Anion Gap Estim Creat Clear Calc Estimated GFR Random Glucose Lactic Acid Calcium Magnesium Total Bilirubin Direct Bilirubin AST ALT Alkaline Phosphatase C-Reactive Protein 0.97 H Total Protein Albumin Lipase Urine Color Urine Appearance Urine pH Ur Specific [place] Urine Protein Urine Glucose (UA) Urine Ketones Urine Blood Urine Nitrite Ur Leukocyte Esterase Stool Occult Blood Influenza Type A (PCR) NEGATIVE Influenza Type B (PCR) NEGATIVE RSV RNA Qual (PCR) NEGATIVE SARS-CoV-2 RNA (RT-PCR) NEGATIVE Imaging Radiologist's Impressions: Impressions Abdomen/Pelvis CT 07/23/22 16:57 IMPRESSION: 1. A cause for the patient's lower abdominal pain and diarrhea has not been found. 2. Incidental note made of an enlarged fatty liver. 3. There is mild left-sided hydronephrosis without an obstructing lesion seen. Small cystic area just in front of the left seminal vesicle of questionable significance. If further evaluation is needed, MRI would be the exam of choice. Fleischner guidelines were followed. Abdomen/Pelvis CTA 07/23/22 20:06 IMPRESSION: 1. No evidence of vascular abnormality to account for the patient's GI bleeding. 2. The colon is completely decompressed which limits evaluation for colitis. Given the patient's history I suspect that this may represent colitis. 3. Incidental note made of mildly enlarged fatty liver. 4. 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 Fleischner guidelines were followed. Assessment and Plan (1) Abdominal pain: Qualifiers: Abdominal location: generalized Qualified Code(s): R10.84 - Generalized abdominal pain Status: Acute (2) Acute GI bleeding: Status: Acute (3) Colitis: Status: Acute (4) Bloody diarrhea: Status: Acute Plan 27-year-old male with past medical history of Gilbert's disease presents to the hospital with complaints of abdominal pain, as well as bloody diarrhea # acute abdominal pain - possibly secondary to colitis, infectious versus inflammatory - supportive measure, p.r.n. Tylenol as needed # colitis - likely inflammatory given the age and presentation, versus infectious less likely - GI panel, C diff pending - will treat with IV antibiotics prophylactically - IV fluids - GI consulted # acute GI bleed/bloody diarrhea - secondary to above - hemoglobin stable - follow CBC - GI consulted DVT prophylaxis: SCDs/early ambulation given patient's acute GI bleed as well as significant pain as well as treatment for colitis patient will require a minimum 2 nights inpatient hospital stay for further management and monitoring Time Spent With Patient Time: Total time managing care of this patient today ____ minutes. Quality Stroke Does the patient have a stroke diagnosis?: No VTE Prior VTE?: No VTE Risk Level:: Medical - moderate - high VTE Device Contraindication: Treatment Not Indicated VTE Drug Contraindication: N/A - Med Ordered
--- NOTE | 2022-07-23 23:01 | PC.NURSE ---
Nurse to nurse report called to med surge floor, spoke to VIVIAN Chamberlain patient to be transferred to room 370 by csr technician.
[2022-07-23 23:10] VITALS: RESP 16
[2022-07-23 23:40] LABS: ~Lactic Acid-LAB USE ONLY 1.9 mmol/L (0.5-2.0)
[2022-07-23 23:49] VITALS: BMI 21.8
[2022-07-23 23:51] VITALS: BP 126/70; PULSE 77; RESP 18; TEMP 36.4; O2SAT 96
--- NOTE | 2022-07-24 00:05 | PC.NURSE ---
Pt arrived to the unit via wheel chair, he is alert and oriented X 4, respiration is even and non-labored. This Rn reinforced NPO diet with patient, verbalized understanding. Pt is resting and has no concerns at this time and is aware of plan of care.
[2022-07-24] MEDS: 0.9 % Sodium Chloride Flush 3 ML SYRINGE IVFLUSH ×4 (00:10→19:15)
[2022-07-24 03:52] VITALS: BP 107/55; PULSE 73; RESP 18; TEMP 36.6; O2SAT 97
[2022-07-24 04:39] LABS: CDiff Gene PCR NEGATIVE (Negative)
[2022-07-24 06:14] LABS: MANUAL DIFF FLAG NO
[2022-07-24 06:17] LABS: Basophils Percent Auto 0.3 % (0-2); Eosinophils Percent Auto 0.4 % (0-4); Hematocrit 46.3 % (42.0-52.0); Hemoglobin 15.8 g/dl (14.0-18.0); Imm Gran Abs Auto 0.04 X10*3/uL (0.00-0.03); Imm Gran Pct Auto 0.4 % (0.0-0.4); Lymphocytes Absolute Auto 1.6 X10*3/uL (1.2-4.9); Lymphocytes Percent Auto 15.4 % (20-40); Mean Corpuscular HGB Conc 34.1 g/dl (31.0-36.0); Mean Corpuscular Hemoglobin 28.9 pg (27.0-33.0); Mean Corpuscular Volume 84.6 fL (80.0-98.0); Mean Platelet Volume 8.6 fL (9.4-12.4); Monocytes Absolute Auto 0.9 X10*3/uL (0.1-1.2); Monocytes Percent Auto 8.4 % (2-11); Neutrophils Absolute Auto 7.8 x10*3/uL (2.0-8.3); Neutrophils Percent Auto 75.1 % (45-73); Platelet Count 268 X10*3/uL (160-400); Red Blood Count 5.47 X10*6/uL (4.60-5.80); Red Cell Distribution Width 11.8 % (11.0-16.0); White Blood Count 10.4 X10*3/uL (4.8-10.8)
[2022-07-24 06:47] LABS: Anion Gap 12 (12-20); Blood Urea Nitrogen 8 mg/dL (9-16); Calcium 8.5 mg/dL (8.4-10.2); Carbon Dioxide 24 mmol/L (22-29); Chloride 108 mmol/L (96-108); Creatinine Clr Calc Pharmacy 119.3; Estimated Glomerular Filt Rate > 60; Glucose Random 106 mg/dL (60-115); Potassium 3.5 mmol/L (3.3-5.1); Sodium 140 mmol/L (135-145)
[2022-07-24 07:53] VITALS: BP 113/62; PULSE 74; RESP 16; TEMP 36.5; O2SAT 97
[2022-07-24] MEDS: 0.9 % Sodium Chloride 1,000 ML 100 ML IVCONT (08:32)
[2022-07-24] MEDS: metroNIDAZOLE/NS 500 MG/100 ML PIGGYBACK 100 MG IV ×3 (08:32→23:15)
--- NOTE | 2022-07-24 10:11 | HO.PM.IMPN ---
Subjective Subjective Date of Service: 07/24/22 Interval History: ongoing hematochezia LLQ discomfort has had on and off for about a year no fever no rash no high-risk food or travel exposures Review of Systems Review of Systems: Yes all other systems are reviewed and are negative Physical Exam Vital Signs: Vital Signs: Last Vital Signs Temp 97.7 F 07/24/22 07:53 Pulse 74 07/24/22 07:53 Resp 16 07/24/22 07:53 BP 113/62 07/24/22 07:53 Pulse Ox 97 07/24/22 07:53 O2 Del Method Room Air 07/24/22 07:53 BMI result Body Mass Index 21.8 Gen: in no acute distress HEENT: sclera anicteric, moist mucus membranes, no oral ulcers Neck: supple Lungs: clear to auscultation bilaterally Heart: regular rate and rhythm, no murmurs Abd: soft, LLQ tender without rebound/guarding, non-distended Ext: no edema Skin: warm/well-perfused, no rashes, no erythema nodosum Neuro: alert and oriented x3, no focal findings Psych: appropriate affect Objective Data Active Medications Acetaminophen (Acetaminophen 325 Mg Tablet) 650 mg PO Q6H PRN PRN Reason: Pain, Mild (Pain Scale 1-3) Enoxaparin Sodium (Enoxaparin Sodium 40 Mg/0.4 Ml Syringe) 40 mg SUBCUT Q24H [facility] Last Admin: 07/24/22 07:12 Dose: Not Given Documented By: MEHDI Non-Admin Reason: Patient Refused Ceftriaxone Sodium 1 gm/ (Sodium Chloride) 50 mls @ 100 mls/hr IV Q24H [facility] Metronidazole (Flagyl) 500 mg in 100 mls @ 100 mls/hr IV Q8H [facility] Last Infusion: 07/24/22 09:46 Dose: 0 mls/hr Documented By: MEHDI Sodium Chloride (Ns) 1,000 mls @ 100 mls/hr IVCONT .Q10H [facility] Last Admin: 07/24/22 08:32 Dose: 100 mls/hr Documented By: MEHDI Morphine Sulfate (Morphine Sulfate 4 Mg/Ml Cartridge) 4 mg IVPUSH Q4H PRN; Protocol PRN Reason: Pain, Severe (Pain Scale 7-10) Last Admin: 07/23/22 23:10 Dose: 4 mg Documented By: CLEMENCIA Multivitamins/Vitamin C (Multivitamin Tablet) 1 tab PO DAILY [facility] Last Admin: 07/24/22 08:36 Dose: Not Given Documented By: MEHDI Non-Admin Reason: Patient Refused Ondansetron HCl (Ondansetron Hcl 4 Mg/2 Ml Vial) 4 mg IVPUSH Q8H PRN PRN Reason: Nausea and Vomiting Last Admin: 07/23/22 23:24 Dose: 4 mg Documented By: CLEMENCIA Sodium Chloride (0.9 % Sodium Chloride Flush 3 Ml Syringe) 3 ml IVFLUSH QSHIFT [facility] Last Admin: 07/24/22 07:11 Dose: 3 ml Documented By: MEHDI Labs 07/24/22 05:59 07/24/22 05:59 Labs: Laboratory Results - last 24 hr 07/23/22 07/23/22 07/23/22 17:56 17:56 17:56 MCV 85.8 MCH 29.6 MCHC 34.5 RDW 11.6 Plt Count 332 MPV 8.8 L Immature Gran % (Auto) 0.5 H Neut % (Auto) 87.7 H Lymph % (Auto) 7.3 L [place] % (Auto) 4.3 Eos % (Auto) 0.0 Baso % (Auto) 0.2 Lymph # (Auto) 1.0 L [place] # (Auto) 0.6 Eos # (Auto) 0.0 Baso # (Auto) 0.0 Abs Immat Gran (auto) 0.07 H Absolute Neuts (auto) 12.4 H Absolute Nucleated RBC 0.000 Nucleated RBC % (auto) 0.0 ESR Anion Gap 16 Estim Creat Clear Calc 118.3 Estimated GFR > 60 Random Glucose 112 Lactic Acid Lactic Acid F/U @ 2Hr Calcium 9.9 Magnesium 1.9 Total Bilirubin 1.1 H Direct Bilirubin 0.3 AST 38 H ALT 75 H Alkaline Phosphatase 81 C-Reactive Protein Total Protein 7.7 Albumin 4.7 Lipase 19 Urine Color Yellow Urine Appearance Clear Urine pH 8.0 Ur Specific [place] 1.020 Urine Protein Negative Urine Glucose (UA) Negative Urine Ketones Trace Urine Blood Negative Urine Nitrite Negative Ur Leukocyte Esterase Negative Stool Occult Blood C. difficile Tox B Gene Influenza Type A (PCR) Influenza Type B (PCR) RSV RNA Qual (PCR) SARS-CoV-2 RNA (RT-PCR) 07/23/22 07/23/22 07/23/22 17:56 19:10 19:31 MCV MCH MCHC RDW Plt Count MPV Immature Gran % (Auto) Neut % (Auto) Lymph % (Auto) [place] % (Auto) Eos % (Auto) Baso % (Auto) Lymph # (Auto) [place] # (Auto) Eos # (Auto) Baso # (Auto) Abs Immat Gran (auto) Absolute Neuts (auto) Absolute Nucleated RBC Nucleated RBC % (auto) ESR 4 Anion Gap Estim Creat Clear Calc Estimated GFR Random Glucose Lactic Acid 3.5 H* Lactic Acid F/U @ 2Hr Calcium Magnesium Total Bilirubin Direct Bilirubin AST ALT Alkaline Phosphatase C-Reactive Protein Total Protein Albumin Lipase Urine Color Urine Appearance Urine pH Ur Specific [place] Urine Protein Urine Glucose (UA) Urine Ketones Urine Blood Urine Nitrite Ur Leukocyte Esterase Stool Occult Blood POSITIVE C. difficile Tox B Gene Influenza Type A (PCR) Influenza Type B (PCR) RSV RNA Qual (PCR) SARS-CoV-2 RNA (RT-PCR) 07/23/22 07/23/22 07/23/22 19:45 21:42 23:24 MCV MCH MCHC RDW Plt Count MPV Immature Gran % (Auto) Neut % (Auto) Lymph % (Auto) [place] % (Auto) Eos % (Auto) Baso % (Auto) Lymph # (Auto) [place] # (Auto) Eos # (Auto) Baso # (Auto) Abs Immat Gran (auto) Absolute Neuts (auto) Absolute Nucleated RBC Nucleated RBC % (auto) ESR Anion Gap Estim Creat Clear Calc Estimated GFR Random Glucose Lactic Acid Lactic Acid F/U @ 2Hr 1.9 Calcium Magnesium Total Bilirubin Direct Bilirubin AST ALT Alkaline Phosphatase C-Reactive Protein 0.97 H Total Protein Albumin Lipase Urine Color Urine Appearance Urine pH Ur Specific [place] Urine Protein Urine Glucose (UA) Urine Ketones Urine Blood Urine Nitrite Ur Leukocyte Esterase Stool Occult Blood C. difficile Tox B Gene Influenza Type A (PCR) NEGATIVE Influenza Type B (PCR) NEGATIVE RSV RNA Qual (PCR) NEGATIVE SARS-CoV-2 RNA (RT-PCR) NEGATIVE 07/24/22 07/24/22 07/24/22 03:40 05:59 05:59 MCV 84.6 MCH 28.9 MCHC 34.1 RDW 11.8 Plt Count 268 MPV 8.6 L Immature Gran % (Auto) 0.4 Neut % (Auto) 75.1 H Lymph % (Auto) 15.4 L [place] % (Auto) 8.4 Eos % (Auto) 0.4 Baso % (Auto) 0.3 Lymph # (Auto) 1.6 [place] # (Auto) 0.9 Eos # (Auto) 0.0 Baso # (Auto) 0.0 Abs Immat Gran (auto) 0.04 H Absolute Neuts (auto) 7.8 Absolute Nucleated RBC 0.000 Nucleated RBC % (auto) 0.0 ESR Anion Gap 12 Estim Creat Clear Calc 119.3 Estimated GFR > 60 Random Glucose 106 Lactic Acid Lactic Acid F/U @ 2Hr Calcium 8.5 D Magnesium Total Bilirubin Direct Bilirubin AST ALT Alkaline Phosphatase C-Reactive Protein Total Protein Albumin Lipase Urine Color Urine Appearance Urine pH Ur Specific [place] Urine Protein Urine Glucose (UA) Urine Ketones Urine Blood Urine Nitrite Ur Leukocyte Esterase Stool Occult Blood C. difficile Tox B Gene NEGATIVE Influenza Type A (PCR) Influenza Type B (PCR) RSV RNA Qual (PCR) SARS-CoV-2 RNA (RT-PCR) Assessment and Plan (1) Bloody diarrhea: Status: Acute Plan d#2 27yo M admitted with recurrent, intermittent hematochezia + LLQ pain # hematochezia - suspicion of colitis, infectious vs inflammatory - Cdiff negative - pending: stool WBCs, GI PCR panel, calprotectin - GI consultation re colonoscopy - NPO - ceftriaxone/metronidazole d#2 # lactic acidosis - resolved; not due to sepsis # transaminasemia - recheck LFTs in AM, screen for chronic HBV/HCV 27-year-old male with past medical history of Gilbert's disease presents to the hospital with complaints of abdominal pain, as well as bloody diarrhea # VTE ppx: SCDs # dispo: anticipate home eventually In my clinical judgment, the patient requires continued inpatient hospitalization for the following reasons: IV fluids/antibiotics Time Spent With Patient Time: Total time managing care of this patient today ___35_ minutes. Quality Stroke Does the patient have a stroke diagnosis?: No VTE Prior VTE?: No VTE Risk Level:: Medical - moderate - high VTE Device Contraindication: Treatment Not Indicated VTE Drug Contraindication: N/A - Med Ordered
--- NOTE | 2022-07-24 11:16 | MHC.CM.PN ---
Male 27 DX Colitis Patient lives with a roomate. 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 He is independent with all functional mobility. He declined the offer to document a HCP. He has been vaxxed for N[place] x 3, Moderna. DP home self care. Pt will arrange for transportation home.
[2022-07-24 11:19] LABS: Adenovirus F 40/41 Not Detected (Not Detect.); Astrovirus Not Detected (Not Detect.); Campylobacter Not Detected (Not Detect.); Cryptosporidium Not Detected (Not Detect.); Cyclospora cayetanensis Not Detected (Not Detect.); E. coli EAEC Not Detected (Not Detect.); E. coli EPEC Not Detected (Not Detect.); E. coli ETEC Not Detected (Not Detect.); E. coli STEC Not Detected (Not Detect.); Entamoeba histolytica Not Detected (Not Detect.); Giardia lamblia Not Detected (Not Detect.); Norovirus GI/GII Not Detected (Not Detect.); Plesiomonas shigelloides Not Detected (Not Detect.); Rotavirus A Not Detected (Not Detect.); Salmonella Not Detected (Not Detect.); Sapovirus Not Detected (Not Detect.); Shigella sp./EIEC Not Detected (Not Detect.); Vibrio Not Detected (Not Detect.); Vibrio Cholerae Not Detected (Not Detect.); Yersinia enterocolitica Not Detected (Not Detect.)
--- NOTE | 2022-07-24 11:38 | P.CNGI_ITS ---
History of Present Illness Data of Consult Service Date: 07/24/22 Requesting physician: Ernie Bass Primary Care Provider: MARCO Rogers Reason for consult: Colitis This is a 27-year-old gentleman with past medical history of pancreatitis reportedly from hypertriglyceridemia, Gilbert's disease, who is currently admitted to the hospital for hematochezia. History was obtained from the patient, who states that yesterday morning, he woke up with left lower quadrant crampy abdominal pain and nausea associated with multiple episodes of loose maroon watery bowel movements. No fresh blood or clots seen. This was associated with chills but no fevers. No vomiting. He had pizza the night before. When he presented to the hospital, he was noted to be vital is stable. Labs were significant for leukocytosis which has resolved today. Elevated transaminases. He also had a high lactate of 3.5 which decreased to 1.9 with adequate fluid resuscitation. Fluid studies were sent for infectious workup and are pending. C diff negative. CT abdomen and pelvis with IV contrast shows decompressed left-sided colon with question of colitis. Currently the time of evaluation, reports significant improvement in the pain. Bowel movement frequency has reduced. He does report 1 or 2 episodes of painless hematochezia in the past, which he attributed to a stressful routine. Last episode was a few years ago. Review of Systems Review of Systems: Yes all other systems are reviewed and are negative PMF Past Medical History Medical History Acne vulgaris Congenital hydronephrosis Gilbert disease History of pancreatitis Latent tuberculosis Mixed hyperlipidemia Family History Family History Father Renal cell carcinoma Mixed hyperlipidemia Surgical History Surgical History History of biopsy Social History Social History Household Members: Other Housing: House Alcohol intake: never Patient Tobacco Use Status: Never used Tobacco Smoked in Last 30 Days: No e-Cigarette/Vaping Use: Never Used Second Hand Smoke Exposure: No Use of substances other than those prescribed or required for medical reasons: No Currently Displaying Signs/Symptoms of Drug Intoxication Withdrawal: No Have you been hit, kicked, punched, or otherwise hurt by someone within the past year? 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 Cognitive needs: No Hearing needs: No Vision needs: Yes (glasses) Meds Allergies Allergy/AdvReac Type Severity Reaction Status Date / Time apple Allergy Intermediate itchy Verified 08/15/21 09:39 throat peach Allergy Intermediate itchy Verified 08/15/21 09:39 throat Active Medications: Current Medications Acetaminophen (Acetaminophen 325 Mg Tablet) 650 mg PO Q6H PRN PRN Reason: Pain, Mild (Pain Scale 1-3) Enoxaparin Sodium (Enoxaparin Sodium 40 Mg/0.4 Ml Syringe) 40 mg SUBCUT Q24H [facility] Last Admin: 07/24/22 07:12 Dose: Not Given Ceftriaxone Sodium 1 gm/ (Sodium Chloride) 50 mls @ 100 mls/hr IV Q24H [facility] Metronidazole (Flagyl) 500 mg in 100 mls @ 100 mls/hr IV Q8H [facility] Last Infusion: 07/24/22 09:46 Dose: Infused Morphine Sulfate (Morphine Sulfate 4 Mg/Ml Cartridge) 4 mg IVPUSH Q4H PRN; Protocol PRN Reason: Pain, Severe (Pain Scale 7-10) Last Admin: 07/23/22 23:10 Dose: 4 mg Multivitamins/Vitamin C (Multivitamin Tablet) 1 tab PO DAILY [facility] Last Admin: 07/24/22 08:36 Dose: Not Given Ondansetron HCl (Ondansetron Hcl 4 Mg/2 Ml Vial) 4 mg IVPUSH Q8H PRN PRN Reason: Nausea and Vomiting Last Admin: 07/23/22 23:24 Dose: 4 mg Sodium Chloride (0.9 % Sodium Chloride Flush 3 Ml Syringe) 3 ml IVFLUSH QSHIFT [facility] Last Admin: 07/24/22 07:11 Dose: 3 ml Home Medications Medication Instructions Recorded Confirmed Last Taken Type acetaminophen 650 mg tablet 650 mg PO Q6H PRN Fever Or Pain 07/23/22 07/23/22 Unknown History multivitamin 1 tab PO DAILY 07/23/22 07/23/22 Unknown History Physical Exam Vital Signs: Vital Signs: Last Vital Signs Temp 97.7 F 07/24/22 07:53 Pulse 74 07/24/22 07:53 Resp 16 07/24/22 07:53 BP 113/62 07/24/22 07:53 Pulse Ox 97 07/24/22 07:53 O2 Del Method Room Air 07/24/22 07:53 BMI result Body Mass Index 21.8 Gen appear: Non toxic appearing, well nourished HEENT: no icterus, no cervical lymphadenopathy Chest: No overt resp distress CVS: S1/S2, regular Abd: soft, tender in LLQ, mildly distended Psych: Stable affect, answering questions appropriately Neuro: A/Ox3 noted to move all extremities spontaneously Ext: no peripheral edema Results Labs 07/24/22 05:59 07/24/22 05:59 Labs: Short CBC 07/23/22 07/24/22 Range/Units 17:56 05:59 WBC 14.1 H 10.4 (4.8-10.8) X10*3/uL Hgb 16.9 15.8 (14.0-18.0) g/dl Hct 49.0 46.3 (42.0-52.0) % Plt Count 332 268 (160-400) X10*3/uL BMP 07/23/22 07/24/22 17:56 05:59 Sodium 139 140 Potassium 4.0 3.5 Chloride 104 108 Carbon Dioxide 23 24 BUN 10 8 L Creatinine 1.02 0.95 Calcium 9.9 8.5 D Liver Function 07/23/22 Range/Units 17:56 Total Bilirubin 1.1 H (0.0-1.0) mg/dL Direct Bilirubin 0.3 (0.0-0.5) mg/dL AST 38 H (5-37) U/L ALT 75 H (0-40) U/L Alkaline Phosphatase 81 (39-117) U/L Albumin 4.7 (3.5-5.0) g/dL Urine 07/23/22 Range/Units 17:56 Urine Color Yellow Urine Appearance Clear Urine pH 8.0 (5.0-9.0) Ur Specific [place] 1.020 (1.005-1.025) Urine Protein Negative (Neg-Trace) mg/dL Urine Glucose (UA) Negative (Negative) mg/dL Assessment and Plan (1) Bloody diarrhea: Status: Acute (2) Abdominal pain: Qualifiers: Abdominal location: generalized Qualified Code(s): R10.84 - Generalized abdominal pain Status: Acute Plan Acute diarrheal illness with bloody stools is most likely infectious. His sx have already improved and feels ready to try some liquid diet. Colonoscopy not indicated for acute diarrheal illness however if sigificant blood in stool persists > 48h can consider endoscopic evaluation. Plan: - Advance to liquid diet - Await results of GI panel - Fecal calpro pending, however suspect will likely be elevated due to ongoing infectious colitis - Daily CBC - Monitor BMs, if continues to have blood in stool in the next 1-2 days, can consider colonoscopy for luminal evaluation. Thank you for allowing me to participate in his care. Please not hesitate to reach out for any questions or concerns. Time Spent With Patient Time: Total time managing care of this patient today ____ minutes. Procedures Date of Service Date of Service: 07/24/22
[2022-07-24 11:51] LABS: Leukocytes Stool Qualitative MANY: >10/OIF (NEGATIVE)
[2022-07-24 15:09] VITALS: BP 114/68; PULSE 80; RESP 18; TEMP 36.9; O2SAT 96
[2022-07-24 19:09] VITALS: BP 95/54; PULSE 78; RESP 18; TEMP 37.2; O2SAT 96
[2022-07-24] MEDS: cefTRIAXone sodium 1 GM in 0.9 % Sodium Chloride 50 ML IV (19:14)
[2022-07-25 03:17] VITALS: BP 114/55; PULSE 71; RESP 18; TEMP 36.6; O2SAT 96
[2022-07-25 06:32] LABS: Hematocrit 47.2 % (42.0-52.0); Hemoglobin 15.8 g/dl (14.0-18.0); Mean Corpuscular HGB Conc 33.5 g/dl (31.0-36.0); Mean Corpuscular Hemoglobin 29.2 pg (27.0-33.0); Mean Corpuscular Volume 87.2 fL (80.0-98.0); Platelet Count 292 X10*3/uL (160-400); Red Blood Count 5.41 X10*6/uL (4.60-5.80); Red Cell Distribution Width 11.9 % (11.0-16.0); White Blood Count 9.1 X10*3/uL (4.8-10.8)
[2022-07-25 07:02] LABS: Alanine Aminotransferase 40 U/L (0-40); Albumin Level 3.8 g/dL (3.5-5.0); Alkaline Phosphatase 72 U/L (39-117); Anion Gap 17 (12-20); Aspartate Amino Transferase 20 U/L (5-37); Bilirubin Direct 0.3 mg/dL (0.0-0.5); Bilirubin Total 1.1 mg/dL (0.0-1.0); Blood Urea Nitrogen 9 mg/dL (9-16); Calcium 8.9 mg/dL (8.4-10.2); Carbon Dioxide 22 mmol/L (22-29); Chloride 107 mmol/L (96-108); Creatinine Clr Calc Pharmacy 111.1; Estimated Glomerular Filt Rate > 60; Glucose Random 91 mg/dL (60-115); Potassium 3.6 mmol/L (3.3-5.1); Sodium 142 mmol/L (135-145); Total Protein 6.4 g/dL (6.5-8.0)
[2022-07-25 07:34] VITALS: BP 92/50; PULSE 66; RESP 16; TEMP 36.8; O2SAT 98
[2022-07-25 07:42] LABS: C Reactive Protein 9.03 mg/dL (< or = 0.50)
[2022-07-25 07:53] LABS: HBc Num1 0.08 S/CO (0.00-0.79); HBsAGNum1 0.32 S/CO (0.00-0.99); Hepatitis B Core Antibody Nonreactive (Nonreactive); Hepatitis B Surface Antigen Negative (Negative); ~Hepatitis B Surface Antibody REACTIVE (Nonreactive)
[2022-07-25 07:54] LABS: ~HepC Num1 0.08 S/CO (0.00-0.79); ~Hepatitis C Antibody Nonreactive (Nonreactive)
[2022-07-25] MEDS: metroNIDAZOLE/NS 500 MG/100 ML PIGGYBACK 100 MG IV (08:20)
[2022-07-25] MEDS: 0.9 % Sodium Chloride Flush 3 ML SYRINGE IVFLUSH (08:26)
[2022-07-25] MEDS: Enoxaparin Sodium 40 MG/0.4 ML SYRINGE SUBCUT (08:28)
--- NOTE | 2022-07-25 11:56 | PM.DS ---
DS: Providers Provider Date of Service: 07/25/22 Date of admission: 07/23/22 22:16 Date of discharge: 07/25/22 Primary care physician: MARCO Rogers Consults: 07/23/22 22:14 Consult to Gastroenterology Routine Consulting Provider: Clint Vega Reason for consultation: colitis in 27 yo, bloody diarrhea DS: Diagnosis Discharge Diagnosis (1) Bloody diarrhea: Status: Acute (2) Colitis: Status: Acute (3) Lactic acidosis: Status: Acute (4) Transaminasemia: Status: Acute DS: Summary Hospital Course Hospital Course: from admission H+P by hospitalist Ernie Bass MD, 07/23/22: 27-year-old male with past medical history of Gilbert's disease, history of pancreatitis, mixed hyperlipidemia, congenital hydronephrosis presents to the hospital with complaints of? sudden onset abdominal pain, as well as bloody diarrhea.? Patient states his symptoms started early in the day after eating, he started developing significant lower abdominal pain, 10/10, shooting, nonradiating, constant, not relieved with any [id number] pain meds including? Extra strength Tylenol associated with multiple episodes of bloody diarrhea.? Patient reports couple of episodes of bloody diarrhea in the past that have resolved spontaneously? in was not associated with any abdominal pain and he? attributed it to stressful events in his life. ? He denies any fever, has chills, no nausea or vomiting, no chest pain, no shortness of breath, no urinary symptoms and no lower extremity edema On arrival to the ED patient hemodynamically stable, ?labs are significant for WBC count of? 14.1, lactic acid of 3.5 which resolved after IV fluids, CRP of 0.97, ESR of 4 otherwise unremarkable, ?abdomen CT angiogram showed possible colitis with no other significant abnormality noted Mr Balderas presented with recurrent, intermittent hematochezia + LLQ pain with suspicioun of colitis. We admitted him to the medical-surgical floor and treated him with IV ceftriaxone and metronidazole. We consulted Gastroenterology. Clostridium difficile toxin assay was negative. Stool GI PCR panel was also negative. Stool leukocytes were positive. A fecal calprotectin assay is pending at the time of discharge. We advanced his diet and his symptoms improved. Lactic acidosis, leukocytosis, and transaminesmia resolved. Hemoglobin remained normal. We discharged him on 5 days of amoxicillin-clavulanate. He should follow up with his primary care provider and also with the Gastroenterology consumer experience consultant, Dr Daria Carbajal, for an outpatient colonoscopy. Time Spent with Patient Time attestation: Total time managing care of this patient today __35__ minutes. Discharge coordination time: Greater than 30 minutes Quality: Safe Use of Opioids Does Pt have an Active Cancer Diagnosis on the Problem List?: No Quality: Stroke Does the patient have a stroke diagnosis?: No Physical Exam Vital Signs: Vital Signs: Last Vital Signs Temp 98.2 F 07/25/22 07:34 Pulse 66 07/25/22 07:34 Resp 16 07/25/22 07:34 BP 92/50 L 07/25/22 07:34 Pulse Ox 98 07/25/22 07:34 O2 Del Method Room Air 07/25/22 07:34 BMI result Body Mass Index 21.8 Gen: in no acute distress HEENT: sclera anicteric, moist mucus membranes Neck: supple Lungs: clear to auscultation bilaterally Heart: regular rate and rhythm, no murmurs Abd: soft, non-tender, non-distended Ext: no edema Skin: warm/well-perfused Neuro: alert and oriented x3, no focal findings Psych: appropriate affect DS: Data Data Completed and Pending Completed studies during hospitalization [Text1]: Laboratory Results WBC 9.1 X10*3/uL (4.8-10.8) 07/25/22 06:10 RBC 5.41 X10*6/uL (4.60-5.80) 07/25/22 06:10 Hgb 15.8 g/dl (14.0-18.0) 07/25/22 06:10 Hct 47.2 % (42.0-52.0) 07/25/22 06:10 MCV 87.2 fL (80.0-98.0) 07/25/22 06:10 MCH 29.2 pg (27.0-33.0) 07/25/22 06:10 MCHC 33.5 g/dl (31.0-36.0) 07/25/22 06:10 RDW 11.9 % (11.0-16.0) 07/25/22 06:10 Plt Count 292 X10*3/uL (160-400) 07/25/22 06:10 MPV 9.0 fL (9.4-12.4) L 07/25/22 06:10 Immature Gran % (Auto) 0.4 % (0.0-0.4) 07/24/22 05:59 Neut % (Auto) 75.1 % (45-73) H 07/24/22 05:59 Lymph % (Auto) 15.4 % (20-40) L 07/24/22 05:59 [place] % (Auto) 8.4 % (2-11) 07/24/22 05:59 Eos % (Auto) 0.4 % (0-4) 07/24/22 05:59 Baso % (Auto) 0.3 % (0-2) 07/24/22 05:59 Lymph # (Auto) 1.6 X10*3/uL (1.2-4.9) 07/24/22 05:59 [place] # (Auto) 0.9 X10*3/uL (0.1-1.2) 07/24/22 05:59 Eos # (Auto) 0.0 X10*3/uL (0.0-0.4) 07/24/22 05:59 Baso # (Auto) 0.0 X10*3/uL (0.0-0.2) 07/24/22 05:59 Abs Immat Gran (auto) 0.04 X10*3/uL (0.00-0.03) H 07/24/22 05:59 Absolute Neuts (auto) 7.8 x10*3/uL (2.0-8.3) 07/24/22 05:59 Absolute Nucleated RBC 0.000 X10*3/uL (0.0-0.012) 07/25/22 06:10 Nucleated RBC % (auto) 0.0 /100WBC (0.0-0.2) 07/25/22 06:10 ESR 4 MM/HR (0-15) 07/23/22 17:56 Sodium 142 mmol/L (135-145) 07/25/22 06:10 Potassium 3.6 mmol/L (3.3-5.1) 07/25/22 06:10 Chloride 107 mmol/L (96-108) 07/25/22 06:10 Carbon Dioxide 22 mmol/L (22-29) 07/25/22 06:10 Anion Gap 17 (12-20) 07/25/22 06:10 BUN 9 mg/dL (9-16) 07/25/22 06:10 Creatinine 1.02 mg/dL (0.5-1.4) 07/25/22 06:10 Estim Creat Clear Calc 111.1 07/25/22 06:10 Estimated GFR > 60 07/25/22 06:10 Random Glucose 91 mg/dL (60-115) 07/25/22 06:10 Lactic Acid 3.5 mmol/L (0.5-2.0) H* 07/23/22 19:31 Lactic Acid F/U @ 2Hr 1.9 mmol/L (0.5-2.0) 07/23/22 23:24 Calcium 8.9 mg/dL (8.4-10.2) 07/25/22 06:10 Magnesium 1.9 mg/dL (1.6-2.6) 07/23/22 17:56 Total Bilirubin 1.1 mg/dL (0.0-1.0) H 07/25/22 06:10 Direct Bilirubin 0.3 mg/dL (0.0-0.5) 07/25/22 06:10 AST 20 U/L (5-37) 07/25/22 06:10 ALT 40 U/L (0-40) 07/25/22 06:10 Alkaline Phosphatase 72 U/L (39-117) 07/25/22 06:10 C-Reactive Protein 9.03 mg/dL (< or = 0.50) H 07/25/22 06:10 Total Protein 6.4 g/dL (6.5-8.0) L 07/25/22 06:10 Albumin 3.8 g/dL (3.5-5.0) 07/25/22 06:10 Lipase 19 U/L (8-78) 07/23/22 17:56 Urine Color Yellow 07/23/22 17:56 Urine Appearance Clear 07/23/22 17:56 Urine pH 8.0 (5.0-9.0) 07/23/22 17:56 Ur Specific [place] 1.020 (1.005-1.025) 07/23/22 17:56 Urine Protein Negative mg/dL (Neg-Trace) 07/23/22 17:56 Urine Glucose (UA) Negative mg/dL (Negative) 07/23/22 17:56 Urine Ketones Trace mg/dL (Negative) 07/23/22 17:56 Urine Blood Negative (Negative) 07/23/22 17:56 Urine Nitrite Negative (Negative) 07/23/22 17:56 Ur Leukocyte Esterase Negative (Negative) 07/23/22 17:56 Stool Occult Blood POSITIVE (NEGATIVE) 07/23/22 19:10 Stool Leukocytes, Qual MANY: >10/OIF (NEGATIVE) 07/24/22 09:08 Stl C. cayetanensis PCR Not Detected (Not Detect.) 07/24/22 03:40 Stool Rotavirus A PCR Not Detected (Not Detect.) 07/24/22 03:40 Stl Adenov F PCR Not Detected (Not Detect.) 07/24/22 03:40 Stool Astrovirus (PCR) Not Detected (Not Detect.) 07/24/22 03:40 Stool Campylobacter PCR Not Detected (Not Detect.) 07/24/22 03:40 Stool Cryptosporidium PCR Not Detected (Not Detect.) 07/24/22 03:40 Stl Sh Tox Pr E STEC PCR Not Detected (Not Detect.) 07/24/22 03:40 Stool E coli O157 PCR Not applicable (Not Detect.) 07/24/22 03:40 Stl Enterotoxigenic E PCR Not Detected (Not Detect.) 07/24/22 03:40 Stool EPEC (PCR) Not Detected (Not Detect.) 07/24/22 03:40 Stool EAEC (PCR) Not Detected (Not Detect.) 07/24/22 03:40 Stl E. histolytica PCR Not Detected (Not Detect.) 07/24/22 03:40 Stool Giardia Lamblia PCR Not Detected (Not Detect.) 07/24/22 03:40 Stl P. shigelloides PCR Not Detected (Not Detect.) 07/24/22 03:40 Stool Salmonella PCR Not Detected (Not Detect.) 07/24/22 03:40 Stool Sapovirus (PCR) Not Detected (Not Detect.) 07/24/22 03:40 Stl Shigella/EIEC PCR Not Detected (Not Detect.) 07/24/22 03:40 St Y.enterocolitica PCR Not Detected (Not Detect.) 07/24/22 03:40 Stool Vibrio (PCR) Not Detected (Not Detect.) 07/24/22 03:40 Stl Vibrio cholerae PCR Not Detected (Not Detect.) 07/24/22 03:40 Stl Norovirus GI/GII PCR Not Detected (Not Detect.) 07/24/22 03:40 C. difficile Tox B Gene NEGATIVE (Negative) 07/24/22 03:40 Hep Bs Antigen Negative (Negative) 07/25/22 06:10 Hep Bs Antibody REACTIVE (Nonreactive) 07/25/22 06:10 Hep B Core Total Ab Nonreactive (Nonreactive) 07/25/22 06:10 Hepatitis C Ab (EIA) Nonreactive (Nonreactive) 07/25/22 06:10 Influenza Type A (PCR) NEGATIVE (Negative) 07/23/22 19:45 Influenza Type B (PCR) NEGATIVE (Negative) 07/23/22 19:45 RSV RNA Qual (PCR) NEGATIVE (Negative) 07/23/22 19:45 SARS-CoV-2 RNA (RT-PCR) NEGATIVE (Negative) 07/23/22 19:45 Impressions Abdomen/Pelvis CT 07/23/22 16:57 IMPRESSION: 1. A cause for the patient's lower abdominal pain and diarrhea has not been found. 2. Incidental note made of an enlarged fatty liver. 3. There is mild left-sided hydronephrosis without an obstructing lesion seen. Small cystic area just in front of the left seminal vesicle of questionable significance. If further evaluation is needed, MRI would be the exam of choice. Fleischner guidelines were followed. Abdomen/Pelvis CTA 07/23/22 20:06 IMPRESSION: 1. No evidence of vascular abnormality to account for the patient's GI bleeding. 2. The colon is completely decompressed which limits evaluation for colitis. Given the patient's history I suspect that this may represent colitis. 3. Incidental note made of mildly enlarged fatty liver. 4. 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 Fleischner guidelines were followed. Discharge Plan Discharge Anticipated Discharge Date/Time: 07/25/22 16:52 Patient Disposition: Home, Self-Care Discharge Diagnosis: Colitis, hematochezia Referrals: Susan Andrea, DISTRIBUTION CLERK-C [Primary Care Provider] - 1 Week Daria Carbajal MD [Physician] - 2 Weeks Discharge Medications: New amoxicillin-pot clavulanate 875-125 mg tablet 1 tab PO BID Qty: 10 0RF Continued multivitamin Tablet 1 tab PO DAILY acetaminophen 650 mg Tablet 650 mg PO Q6H PRN (Reason: Fever Or Pain) Discharge Orders: Discharge Order (Routine); Ordered 07/25/22 Ordered By: Marycarmen Dobbs Diet: bland diet Activity on Discharge: As tolerated Stand Alone Forms: Patient Portal Discharge page Care Plan Goals: resolution of colitis, hematochezia Health Concerns: Colitis, hematochezia Plan of Treatment: take amoxicillin-clavulanate 875-125 mg twice daily for five days see Dr Daria Carbajal from [facility] in 2 weeks to discuss scheduling of outpatient colonoscopy Please follow up with your primary care doctor within 1 week. Return to the hospital if you experience recurrent or worsening symptoms. Assessment: See Discharge Summary.
--- NOTE | 2022-07-25 14:00 | MHC.CM.PN ---
Addendum entered by Carmina Mallory 07/25/22 15:49: Patient is discharged to home today self care. He has arranged for transportation home. Original Note: Per MD rounds Patient scheduled for scope today. Diet will advance. Patient may discharge to home later this afternoon.
[2022-08-01 23:13] LABS: Calprotectin, Fecal 1630 mcg/g
== END 2022-07-25 16:03 | disposition home or self-care (01) | DRG 392 ==
LOC: HO.ED 21:41 → HO.EDOVER 22:27 → HO.S3 22:30
PROVIDERS: Nurse Practitioner Family; Physician Assistant; Admitting Provider Internal Medicine; Emergency Provider Emergency Medicine; PCP Nurse Practitioner Family; Visit Provider Family Medicine
DX: K52.9 Noninfective gastroenteritis and colitis, unspecified (principal); Q62.0 Congenital hydronephrosis; E87.20 Acidosis, unspecified; K92.1 Melena; E78.2 Mixed hyperlipidemia; E80.4 Gilbert syndrome; Z20.822 Contact with and (suspected) exposure to COVID-19
CPT/HCPCS: 0241U; 36415; 74174; 74176; 80048; 80076; 81003; 82272; 83605; 83690; 83735; 83993; 85025; 85027; 85652; 86140; 86704; 86706; 86803; 87040; 87340; 87493; 87507; 89055; 93005; 99221; 99285; J0696; J1650; J1956; J2270; J2405; Q9967

== ENCOUNTER → 2022-09-10 14:48 | Outpatient (BNVA) | payer OTHER, SELFPAY | PROVIDERS: PCP Nurse Practitioner Family; Visit Provider Internal Medicine ==

== ENCOUNTER 2022-09-11 10:40 | Outpatient (REF) | payer OTHER, SELFPAY ==
[2022-09-11 13:55] LABS: C Reactive Protein 0.51 mg/dL (< or = 0.50)
[2022-09-14 17:08] LABS: Immunoglobulin A 313 mg/dL (47-310)
[2022-09-15 09:58] LABS: Transglutaminase IgA <1.0 U/mL
[2022-09-19 22:53] LABS: Calprotectin, Fecal 7 mcg/g
== END 2022-09-11 10:41 | disposition home or self-care (01) ==
LOC: HO.10HDL 10:40
PROVIDERS: Visit Provider Internal Medicine
DX: K52.9 Noninfective gastroenteritis and colitis, unspecified (principal)
CPT/HCPCS: 36415; 82784; 83993; 86140; 86364

== ENCOUNTER 2022-09-14 09:54 | Outpatient (REF) | payer OTHER, SELFPAY ==
[2022-09-14 11:32] LABS: Cholesterol 250 mg/dL; HDL Cholesterol 34 mg/dL; LDL Cholesterol Calculated 172 mg/dl; Triglycerides 224 mg/dL
[2022-09-14 12:06] LABS: Folate 13.7 ng/mL (> or = 4.0); Vitamin B12 294 pg/mL (200-900); Vitamin D 25-OH Total 19.8 ng/mL (>30)
== END 2022-09-14 09:55 | disposition home or self-care (01) ==
LOC: HO.10HDL 09:54
PROVIDERS: Visit Provider Nurse Practitioner Family
DX: Z00.00 Encounter for general adult medical examination without abnormal findings (principal); E78.2 Mixed hyperlipidemia; E55.9 Vitamin D deficiency, unspecified; Q62.0 Congenital hydronephrosis
CPT/HCPCS: 36415; 80061; 82306; 82607; 82746; 84443

== ENCOUNTER 2023-09-18 09:18 | Outpatient (AMB) | payer OTHER, SELFPAY ==
--- NOTE | 2023-09-18 09:22 | A.OFFPC_ITS ---
Vital Signs 09/18/23 09:24 Height 5 ft 10 in Weight 169 lb 4 oz BMI 24.3 BP 102/60 Blood Pressure Location Lt brachial Position Sitting Pulse 60 Pulse Source Pulse Oximeter Pulse Oximetry (%) 97 Oxygen Delivery Method Room Air Intake Visit Reasons: PE Intake Note: Patient is here today for a physical. Accounts Receivable Clerk Required: No Concrete Vibrator Operator: Not Required per policy Accompanied by: Self / Same As Patient Allergies apple Allergy (Intermediate, Verified 09/18/23 09:47) itchy throat peach Allergy (Intermediate, Verified 09/18/23 09:47) itchy throat Medication List - Last Reconciled 09/18/23 by Evert Ortiz MD multivitamin 1 tab PO DAILY Tobacco use date assessed: 09/18/23 Dental Screening Dental Screen Date: 09/18/23 Did you have a dental visit in the last 12 months?: Yes Did you have a dental problem in the last 6 months where you did not have access to dental care?: No Was dental information given to patient?: Patient has dentist HPI PE HPI Details 28-year-old male presents to the office requesting an annual physical. [facility] Medical History (Updated 09/18/23 @ 09:55 by Evert Ortiz MD) Colitis Benign mole Latent tuberculosis Acne vulgaris Congenital hydronephrosis Gilbert disease Mixed hyperlipidemia History of pancreatitis Surgical History History of esophagogastroduodenoscopy (EGD) History of biopsy Family History Father Renal cell carcinoma Mixed hyperlipidemia Social History Household Members: Other Housing: House Alcohol intake: never Patient Tobacco Use Status: Never used Tobacco e-Cigarette/Vaping Use: Never Used Second Hand Smoke Exposure: No service: No Current occupational status: employed 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 1. Little interest or pleasure in doing things: not at all 2. Feeling down, depressed, or hopeless: not at all 3. Trouble falling or staying asleep, or sleeping too much: not at all 4. Feeling tired or having little energy: not at all 5. Poor appetite or overeating: not at all 6. Feeling bad about yourself - or that you are a failure or have let yourself or your family down: not at all 7. Trouble concentrating on things, such as reading the newspaper or watching television: not at all 8. Moving or speaking so slowly that other people could have noticed. Or the opposite - being so fidgety or restless that you have been moving around a lot more than usual: not at all 9. Thoughts that you would be better off or of hurting yourself in some way: not at all Total score: 0 Depression Screening Interpretation: Negative Depression Screening Done: Yes Source: Developed by Drs. Clint Baltazar, Dorothea Bhardwaj, Matt Salinas and colleagues, with an educational altagracia from [employer]. Thrive Questionnaire Date Thrive assessed: 09/18/23 I am a: Patient What is your living situation today?: I have a steady place to live Within the past 12 months, did the food you bought not last and you didn't have the money to get more?: Never true Within the past 12 months, did you worry whether your food would run out before you got money to buy more?: Never true Do you have trouble paying for medicines?: No Do you have trouble getting transportation to medical appointments?: No Do you have trouble paying your heating and electricity bill?: No Do you have trouble taking care of your child, family member or friend?: No Do you have trouble with day-to-day activities such as bathing, preparing meals, shopping, managing finances, etc.?: No Are you currently unemployed and looking for a job?: No Are you interested in more education?: No Currently or been in a relationship where the following occur: no concerns reported THRIVE Score: 0 AUDIT C Alcohol Use Questionnaire (AUDIT-C) 1. How often do you have a drink containing alcohol?: Never Total Score: 0 AMANDA-7 AMB Questionnaire AMANDA-7 Date AMANDA - 7 assessed: 09/18/23 Feeling nervous, anxious, or on edge: 0 = Not at all Not being able to stop or control worryin = Not at all Worrying too much about different things: 0 = Not at all Trouble relaxin = Not at all Being so restless that it is hard to sit still: 0 = Not at all Becoming easily annoyed or irritable: 0 = Not at all Feeling afraid as if something awful might happen: 0 = Not at all Total AMANDA-7 score (0-4 normal; 5-9 mild; 10-14 moderate; 15-21 severe): 0 Source: Developed by Drs. Clint Baltazar, Dorothea Bhardwaj, Matt Salinas and colleagues, with an educational altagracia from [employer]. Physical exam (Primary Care) Vital Signs: Last Vital Signs Pulse 60 09/18/23 09:24 BP 102/60 09/18/23 09:24 Pulse Ox 97 09/18/23 09:24 Oxygen Delivery Method Room Air 09/18/23 09:24 BMI result Body Mass Index 24.3 Tobacco/Smoking Status: Tobacco use Status Tobacco use date assessed 09/18/23 09/18/23 09:29 Patient Tobacco Use Status Never used Tobacco 09/18/23 09:29 e-Cigarette/Vaping Use Never Used 09/18/23 09:29 PHQ-9: PHQ-9 Score PHQ-9: Total score 0 09/18/23 09:29 Depression Screening Interpretation: Negative Thrive Assessment: Date of Thrive Assessment Date Thrive assessed 09/18/23 09/18/23 09:29 Currently or been in a relationship where the following occur: no concerns reported Const General: cooperative and healthy appearing Nutritional Appearance: well nourished Orientation/consciousness: patient oriented x3 Limitations: no limitations HENMT Head: Yes normal to inspection Eyes General: appearance normal, both eyes and all related structures Neck Neck: Yes normal visual inspection Chest Chest palpation & inspection: normal palpation of entire chest wall Resp Effort & Inspection: normal respiratory effort Neuro General: patient oriented x3 Assessment and Plan Assessment & Plan (1) Adult general medical exam: Code(s): Z00.00 - Encounter for general adult medical examination without abnormal findings Plan: Fasting blood work ordered. Patient agrees to start statins if his cholesterol continues to be elevated. (2) Mixed hyperlipidemia: Code(s): E78.2 - Mixed hyperlipidemia Orders: Orders Liver Panel Today E78.2 - Mixed hyperlipidemia Basic Metabolic Panel Today E78.2 - Mixed hyperlipidemia Complete Blood Count no Diff Today E78.2 - Mixed hyperlipidemia Lipid Panel Today E78.2 - Mixed hyperlipidemia Thyroid Stimulating Hormone Today E78.2 - Mixed hyperlipidemia UA and rflx microscopic Today E78.2 - Mixed hyperlipidemia Coding Level of Care Code Est Pt Prev Care 12-17y([id number]) Diagnoses Adult general medical exam Z00.00 Mixed hyperlipidemia E78.2
[2023-09-18 09:24] VITALS: BP 102/60; PULSE 60; O2SAT 97; BMI 24.3
== END 2023-09-18 09:47 | disposition home or self-care (01) ==
PROVIDERS: PCP Nurse Practitioner Family; Visit Provider Internal Medicine
DX: Z00.00 Encounter for general adult medical examination without abnormal findings (principal); E78.2 Mixed hyperlipidemia
CPT/HCPCS: 99395

== ENCOUNTER 2023-09-18 10:43 | Outpatient (REF) | payer OTHER, SELFPAY ==
[2023-09-18 13:29] LABS: Hemoglobin 17.3 g/dl (14.0-18.0); Mean Corpuscular HGB Conc 33.9 g/dl (31.0-36.0); Mean Corpuscular Hemoglobin 29.6 pg (27.0-33.0); Mean Corpuscular Volume 87.3 fL (80.0-98.0); Mean Platelet Volume 8.9 fL (9.4-12.4); Platelet Count 336 X10*3/uL (160-400); Red Blood Count 5.84 X10*6/uL (4.60-5.80); Red Cell Distribution Width 11.9 % (11.0-16.0)
[2023-09-18 13:51] LABS: Alanine Aminotransferase 47 U/L (0-40); Albumin Level 4.6 g/dL (3.5-5.0); Alkaline Phosphatase 84 U/L (39-117); Anion Gap 15 (12-20); Aspartate Amino Transferase 27 U/L (5-37); Bilirubin Direct 0.4 mg/dL (0.0-0.5); Bilirubin Total 1.3 mg/dL (0.0-1.0); Blood Urea Nitrogen 13 mg/dL (9-16); Calcium 9.5 mg/dL (8.4-10.2); Carbon Dioxide 27 mmol/L (22-29); Chloride 108 mmol/L (96-108); Cholesterol 274 mg/dL (<200); Estimated Glomerular Filt Rate > 60; Glucose Random 101 mg/dL (60-115); HDL Cholesterol 40 mg/dL (>40); LDL Cholesterol Calculated 200 mg/dL (<100); Potassium 4.5 mmol/L (3.3-5.1); Sodium 145 mmol/L (135-145); Triglycerides 170 mg/dL (<150)
[2023-09-18 14:06] LABS: Thyroid Stimulating Hormone 1.85 uIU/mL (0.32-4.0)
== END 2023-09-18 10:44 | disposition home or self-care (01) ==
LOC: HO.10HDL 10:43
PROVIDERS: Visit Provider Internal Medicine
DX: E78.2 Mixed hyperlipidemia (principal)
CPT/HCPCS: 36415; 80048; 80061; 80076; 84443; 85027

== ENCOUNTER 2023-09-19 07:50 | Outpatient (REF) | payer OTHER, SELFPAY ==
[2023-09-19 10:37] LABS: Appearance Urine Turbid; Color Urine Yellow; Glucose Urine UA Negative (Negative); Leukocyte Esterase Urine Negative (Negative); Nitrite Urine Negative (Negative); Specific Gravity - Urine 1.025 (1.005-1.025); Urine Blood Negative (Negative); Urine Ketones Negative (Negative); Urine Protein Negative (Neg-Trace)
== END 2023-09-19 07:51 | disposition home or self-care (01) ==
LOC: HO.LAB 07:50
PROVIDERS: Visit Provider Internal Medicine
DX: E78.2 Mixed hyperlipidemia (principal)
CPT/HCPCS: 81003